=== PATIENT | male | born 1945 | race Caucasian/White ===

== ENCOUNTER 2017-06-12 08:54 | Day surgery (SDC) | payer MEDICARE ==
[~2017-06-12] VITALS: Ht 180.3 cm; Wt 117.0 kg
[~2017-06-12 08:54] MED LIST: AMLO5TAB2 PO; ASPI-621 PO; ATOR-2 PO; BUFFERED VITAMIN C PO; CARV-39 PO; GABA300C10 PO; HYDR-882 PO; IBUP-1222 PO; LOSA100T6 PO; MUPI22OI2 TP; NITR0.4T SL; OMEG-69 PO; WARF5TAB PO; WARF7.5T PO; [UNRECOGNIZED DRUG - OTHER] PO
[2017-06-12] MEDS ORDERED: D5%-0.45% NACL 1,000 ML IV SCH (09:59)
[2017-06-12 10:00] VITALS: BP 106/64
[2017-06-12 10:28] LABS: BASOPHILS # (AUTO) 0.02 x10^3/uL (0-0.1); BASOPHILS % (AUTO) 0 % (0-1); EOSINOPHILS # (AUTO) 0.04 x10^3/uL (0-0.4); EOSINOPHILS % (AUTO) 0 % (1-7); LYMPHOCYTES # (AUTO) 1.81 x10^3/uL (1-3.4); LYMPHOCYTES % (AUTO) 20 % (22-44); MD NO; MEAN CORPUSCULAR HEMOGLOBIN 31.4 pg (27.5-34.5); MEAN CORPUSCULAR HGB CONC 33.4 g/dL (33.2-36.2); MEAN PLATELET VOLUME 7.9 fL (7.4-10.4); MONOCYTES # (AUTO) 0.73 x10^3/uL (0.2-0.8); MONOCYTES % (AUTO) 8 % (2-9); NEUTROPHILS # (AUTO) 6.44 x10^3/uL (1.8-6.8); NEUTROPHILS % (AUTO) 71 % (42-75); PLATELET COUNT 232 x10^3/uL (130-400); RED BLOOD COUNT 4.28 x10^6/uL (4.38-5.82); RED CELL DISTRIBUTION WIDTH 12.8 % (9.4-14.8)
[2017-06-12 10:35] LABS: INTERNATIONAL NORMALIZED RATIO 1.15 (0.93-1.1); PROTHROMBIN TIME 11.8 Seconds (9.6-11.5)
[2017-06-12 10:37] LABS: CREATININE 1.58 mg/dL (0.7-1.3)
[2017-06-12] MEDS ORDERED: FENTANYL PF 100 MCG/2ML ONE (10:44)
[2017-06-12] MEDS ORDERED: LIDOCAINE 2%, 10ML ONE (10:48)
[2017-06-12] MEDS ORDERED: VISIPAQUE 270 MG/ML, 150ML BOTTLE ONE (11:00)
[2017-06-12] MEDS ORDERED: HEPARIN 1,000 UNITS/ML, 10ML ONE (11:48)
[2017-06-12] MEDS ORDERED: PROTAMINE SULFATE 10 MG/ML, 25ML ONE (11:57)
== END 2017-06-12 15:00 ==
LOC: OUT 08:54
PROVIDERS: ATTEND Surgery
DX: I70.79 Other atherosclerosis of other type of bypass graft(s) of the extremities (principal); I10 Essential (primary) hypertension; Z88.1 Allergy status to other antibiotic agents; Z88.5 Allergy status to narcotic agent; Z88.8 Allergy status to other drugs, medicaments and biological substances; Z79.82 Long term (current) use of aspirin; Z95.1 Presence of aortocoronary bypass graft; Z98.890 Other specified postprocedural states; Z96.659 Presence of unspecified artificial knee joint
CPT/HCPCS: 36415; 37224; 75630; 76937; 82565; 84520; 85025; 85610; 85730; C1725; C1751; C1760; C1769; C1894; J1644; J2720; J3010; J3490; Q9966

== ENCOUNTER 2017-09-02 23:52 | Inpatient (IN) | payer MEDICARE ==
[~2017-09-02] VITALS: Ht 180.3 cm; Wt 126.0 kg
[2017-09-03 01:24] VITALS: BP 97/60
[2017-09-03] MEDS ORDERED: MAGN2400 PO (01:56)
[2017-09-03] MEDS ORDERED: OXYC-307 PO (01:56)
[2017-09-03] MEDS ORDERED: SENN-87 PO (01:56)
[2017-09-03] MEDS ORDERED: HYDR25TA6 PO (01:56)
[2017-09-03] MEDS ORDERED: RANI150C PO (01:56)
[2017-09-03] MEDS ORDERED: ACET325C PO (01:56)
[2017-09-03] MEDS ORDERED: DOCU-131 PO (02:30)
[2017-09-03] MEDS: GABAPENTIN 300 MG CAPSULE PO SCH ×4 (03:28→22:05)
[2017-09-03] MEDS ORDERED: BISACODYL 10 MG SUPP PR PRN (03:30)
[2017-09-03] MEDS ORDERED: POLYETHYLENE GLYCOL 17 GM PACKET PO PRN (03:30)
[2017-09-03] MEDS ORDERED: ONDANSETRON ODT 4 MG PO PRN (03:30)
[2017-09-03] MEDS ORDERED: morphine SULFATE 10 MG/ML, 1ML IVPush PRN (03:30)
[2017-09-03] MEDS ORDERED: PROMETHAZINE 25 MG/ML, 1ML IM PRN (03:30)
[2017-09-03] MEDS ORDERED: LABETALOL 5MG/ML, 20ML IVPush PRN (03:30)
[2017-09-03] MEDS ORDERED: ONDANSETRON 2MG/ML, 2ML IVPush PRN (03:30)
[2017-09-03] MEDS ORDERED: MAGNESIUM HYDROXIDE 8%, 30ML UDC PO PRN (03:30)
[2017-09-03] MEDS ORDERED: DOCUSATE 100 MG CAPSULE PO PRN (03:30)
[2017-09-03 04:20] LABS: BASOPHILS # (AUTO) 0.06 x10^3/uL (0-0.1); BASOPHILS % (AUTO) 1 % (0-1); EOSINOPHILS # (AUTO) 0.43 x10^3/uL (0-0.4); EOSINOPHILS % (AUTO) 5 % (1-7); LYMPHOCYTES # (AUTO) 1.89 x10^3/uL (1-3.4); LYMPHOCYTES % (AUTO) 23 % (22-44); MD NO; MEAN CORPUSCULAR HEMOGLOBIN 30.2 pg (27.5-34.5); MEAN CORPUSCULAR HGB CONC 33.8 g/dL (33.2-36.2); MEAN CORPUSCULAR VOLUME 89.2 fL (81-97); MEAN PLATELET VOLUME 7.3 fL (7.4-10.4); MONOCYTES # (AUTO) 0.77 x10^3/uL (0.2-0.8); MONOCYTES % (AUTO) 9 % (2-9); NEUTROPHILS # (AUTO) 5.13 x10^3/uL (1.8-6.8); NEUTROPHILS % (AUTO) 62 % (42-75); PLATELET COUNT 259 x10^3/uL (130-400); RED CELL DISTRIBUTION WIDTH 14.8 % (9.4-14.8)
[2017-09-03 04:27] LABS: ALANINE AMINOTRANSFERASE 8 U/L (12-78); ALBUMIN 2.6 g/dL (3.4-5.0); ANION GAP 10 mmol/L (5-15); CALCIUM 8.7 mg/dL (8.5-10.1); CHLORIDE 106 mmol/L (98-107)
[2017-09-03 04:38] LABS: ALKALINE PHOSPHATASE 94 U/L (45-117); BILIRUBIN,TOTAL 1.1 mg/dL (0.2-1.0); CHOL/HDL RATIO 2.7; CHOLESTEROL, TOTAL 92 mg/dL (140-239); CREATININE 0.63 mg/dL (0.7-1.3); FREE T4 (FREE THYROXINE) 1.02 ng/dL (0.76-1.46); HDL CHOL % 37 % (26-37); HDL CHOLESTEROL (DIRECT) 34 mg/dL (40-60); LDL CHOLESTEROL,CALCULATED 39 mg/dL (54-169); LDL/HDL RATIO 1.1 (0.5-3.0); TOTAL PROTEIN 6.7 g/dL (6.4-8.2); TRIGLYCERIDES 96 mg/dL (50-200); VLDL CHOLESTEROL 19 mg/dL (0-25)
[2017-09-03 04:48] LABS: HEMOGLOBIN A1C 5.6 % (4.2-6.3)
[2017-09-03 05:02] LABS: HCT (SEDRATE) 35.7 % (39.2-51.8)
[2017-09-03 06:52] LABS: MICROSCOPIC NOT IND
[2017-09-03 06:58] LABS: CULTURE INDICATED? NO
[2017-09-03] MEDS: OMEGA-3/FISH OIL CAPSULE PO SCH ×2 (08:04→22:05)
[2017-09-03] MEDS: SENNA/DOCUSATE TABLET PO SCH (08:04)
[2017-09-03] MEDS: MULTIVITAMIN 1 TABLET PO SCH (08:05)
[2017-09-03] MEDS: HYDROCHLOROTHIAZIDE 25 MG TABLET PO SCH (08:05)
[2017-09-03] MEDS: OXYcodone/APAP 10/325MG TABLET PO PRN (08:05)
[2017-09-03] MEDS: FAMOTIDINE 20 MG TABLET PO SCH ×2 (08:05→22:05)
[2017-09-03 09:44] VITALS: BP 99/60
[2017-09-03 10:39] LABS: INTERNATIONAL NORMALIZED RATIO 1.55 (0.93-1.1)
[2017-09-03 15:59] VITALS: BP 148/83
[2017-09-03 21:30] VITALS: BP 130/75
[2017-09-03] MEDS: ATORVASTATIN 80 MG TABLET PO SCH (22:05)
[2017-09-04 01:44] VITALS: BP 146/79
[2017-09-04 05:36] LABS: BASOPHILS # (AUTO) 0.04 x10^3/uL (0-0.1); BASOPHILS % (AUTO) 0 % (0-1); EOSINOPHILS # (AUTO) 0.41 x10^3/uL (0-0.4); EOSINOPHILS % (AUTO) 4 % (1-7); LYMPHOCYTES # (AUTO) 1.93 x10^3/uL (1-3.4); LYMPHOCYTES % (AUTO) 21 % (22-44); MD NO; MEAN CORPUSCULAR HEMOGLOBIN 29.9 pg (27.5-34.5); MEAN CORPUSCULAR HGB CONC 33.3 g/dL (33.2-36.2); MEAN CORPUSCULAR VOLUME 89.8 fL (81-97); MEAN PLATELET VOLUME 7.5 fL (7.4-10.4); MONOCYTES # (AUTO) 0.87 x10^3/uL (0.2-0.8); MONOCYTES % (AUTO) 9 % (2-9); NEUTROPHILS # (AUTO) 6.15 x10^3/uL (1.8-6.8); NEUTROPHILS % (AUTO) 66 % (42-75); PLATELET COUNT 284 x10^3/uL (130-400); RED BLOOD COUNT 4.14 x10^6/uL (4.38-5.82); RED CELL DISTRIBUTION WIDTH 14.7 % (9.4-14.8)
[2017-09-04 05:36] LABS: ALBUMIN 2.7 g/dL (3.4-5.0); ANION GAP 6 mmol/L (5-15); CALCIUM 8.7 mg/dL (8.5-10.1); CHLORIDE 103 mmol/L (98-107)
[2017-09-04 05:41] LABS: ALANINE AMINOTRANSFERASE 9 U/L (12-78); ALKALINE PHOSPHATASE 95 U/L (45-117); BILIRUBIN,TOTAL 1.4 mg/dL (0.2-1.0); TOTAL PROTEIN 6.9 g/dL (6.4-8.2)
[2017-09-04 07:49] VITALS: BP 139/78
[2017-09-04] MEDS: OMEGA-3/FISH OIL CAPSULE PO SCH ×2 (09:10→20:25)
[2017-09-04] MEDS: GABAPENTIN 300 MG CAPSULE PO SCH ×3 (09:11→20:26)
[2017-09-04] MEDS: MULTIVITAMIN 1 TABLET PO SCH (09:11)
[2017-09-04] MEDS: HYDROCHLOROTHIAZIDE 25 MG TABLET PO SCH (09:11)
[2017-09-04] MEDS: FAMOTIDINE 20 MG TABLET PO SCH ×2 (09:11→20:26)
[2017-09-04] MEDS: OXYcodone/APAP 10/325MG TABLET PO PRN ×2 (09:11→17:37)
[2017-09-04] MEDS: SENNA/DOCUSATE TABLET PO SCH (09:11)
[2017-09-04] MEDS: SODIUM CHLORIDE FLUSH 10ML SYR IVF SCH ×2 (09:30→21:13)
[2017-09-04] MEDS ORDERED: VANCOMYCIN PER PHARMACY MC PRN ×2 (13:30→17:30)
[2017-09-04] MEDS ORDERED: PIPERACILLIN/TAZO/PMX 3.375GM 50 ML IV SCH (13:30)
[2017-09-04] MEDS ORDERED: PHARMACOKINETIC CONSULTATION MC ONE ×2 (14:00→17:30)
[2017-09-04] MEDS ORDERED: VANCOMYCIN 2,000 MG in SODIUM CHLORIDE 0.9% 500 ML IV SCH ×2 (14:00→18:00)
[2017-09-04] MEDS ORDERED: PHARMACOKINETIC MONITORING MC PRN ×2 (14:00→17:30)
[2017-09-04] MEDS ORDERED: GADOBUTROL 15 MMOL/15 ML PFS ONE (14:22)
[2017-09-04 15:44] VITALS: BP 90/50
[2017-09-04] MEDS ORDERED: PIPERACILLIN/TAZO/PMX 4.5GM 100 ML IV SCH (17:30)
[2017-09-04] MEDS: SODIUM CHLORIDE 0.9% 1,000 ML IV SCH (17:30)
[2017-09-04 19:38] VITALS: BP 105/65
[2017-09-04] MEDS: ATORVASTATIN 80 MG TABLET PO SCH (20:25)
[2017-09-04] MEDS: DOCUSATE 100 MG CAPSULE PO SCH (20:25)
[2017-09-05 01:53] VITALS: BP 120/71
[2017-09-05] MEDS: OXYcodone/APAP 10/325MG TABLET PO PRN ×3 (02:31→18:43)
[2017-09-05 04:51] LABS: BASOPHILS # (AUTO) 0.03 x10^3/uL (0-0.1); BASOPHILS % (AUTO) 0 % (0-1); EOSINOPHILS # (AUTO) 0.45 x10^3/uL (0-0.4); EOSINOPHILS % (AUTO) 4 % (1-7); LYMPHOCYTES # (AUTO) 1.97 x10^3/uL (1-3.4); LYMPHOCYTES % (AUTO) 15 % (22-44); MD NO; MEAN CORPUSCULAR HEMOGLOBIN 29.6 pg (27.5-34.5); MEAN CORPUSCULAR HGB CONC 32.7 g/dL (33.2-36.2); MEAN CORPUSCULAR VOLUME 90.5 fL (81-97); MEAN PLATELET VOLUME 7.2 fL (7.4-10.4); MONOCYTES # (AUTO) 1.14 x10^3/uL (0.2-0.8); MONOCYTES % (AUTO) 9 % (2-9); NEUTROPHILS # (AUTO) 9.23 x10^3/uL (1.8-6.8); NEUTROPHILS % (AUTO) 72 % (42-75); PLATELET COUNT 289 x10^3/uL (130-400); RED BLOOD COUNT 4.22 x10^6/uL (4.38-5.82); RED CELL DISTRIBUTION WIDTH 15.1 % (9.4-14.8)
[2017-09-05 05:04] LABS: CALCIUM 8.9 mg/dL (8.5-10.1); CHLORIDE 103 mmol/L (98-107)
[2017-09-05 05:08] LABS: ALANINE AMINOTRANSFERASE 9 U/L (12-78); ALBUMIN 2.6 g/dL (3.4-5.0); ALKALINE PHOSPHATASE 95 U/L (45-117); ANION GAP 5 mmol/L (5-15); BILIRUBIN,TOTAL 1.3 mg/dL (0.2-1.0); CREATININE 0.69 mg/dL (0.7-1.3); TOTAL PROTEIN 7.1 g/dL (6.4-8.2)
[2017-09-05 08:37] LABS: INTERNATIONAL NORMALIZED RATIO 1.27 (0.93-1.1); PROTHROMBIN TIME 13.1 Seconds (9.6-11.5)
[2017-09-05 08:44] VITALS: BP 122/73
[2017-09-05] MEDS: FAMOTIDINE 20 MG TABLET PO SCH ×2 (09:00→20:43)
[2017-09-05] MEDS: MULTIVITAMIN 1 TABLET PO SCH (09:00)
[2017-09-05] MEDS: SODIUM CHLORIDE FLUSH 10ML SYR IVF SCH ×2 (09:00→20:44)
[2017-09-05] MEDS: OMEGA-3/FISH OIL CAPSULE PO SCH ×2 (09:00→20:43)
[2017-09-05] MEDS: GABAPENTIN 300 MG CAPSULE PO SCH ×3 (09:00→20:43)
[2017-09-05] MEDS: SENNA/DOCUSATE TABLET PO SCH (09:00)
[2017-09-05] MEDS: DOCUSATE 100 MG CAPSULE PO SCH ×2 (09:00→20:43)
[2017-09-05] MEDS: HYDROCHLOROTHIAZIDE 25 MG TABLET PO SCH (09:00)
[2017-09-05] MEDS ORDERED: MIDAZOLAM 1 MG/ML, 5ML ONE (13:11)
[2017-09-05] MEDS ORDERED: FENTANYL PF 100 MCG/2ML ONE (13:11)
[2017-09-05] MEDS ORDERED: FLUMAZENIL 0.1 MG/1 ML, 5ML ONE (13:11)
[2017-09-05] MEDS ORDERED: NALOXONE 1 MG/ML, 2ML ONE (13:11)
[2017-09-05] MEDS ORDERED: LIDOCAINE-MPF 1%, 2ML ONE (13:25)
[2017-09-05] MEDS: SODIUM CHLORIDE 0.9% 1,000 ML IV SCH (13:30)
[2017-09-05 14:30] VITALS: BP 134/80
[2017-09-05 18:39] VITALS: BP 118/67
[2017-09-05] MEDS: ATORVASTATIN 80 MG TABLET PO SCH (20:43)
[2017-09-06] MEDS: OXYcodone/APAP 10/325MG TABLET PO PRN ×3 (00:50→18:23)
[2017-09-06 01:57] VITALS: BP 95/51
[2017-09-06 05:00] LABS: MEAN CORPUSCULAR HGB CONC 33.1 g/dL (33.2-36.2); MEAN CORPUSCULAR VOLUME 90.6 fL (81-97); MEAN PLATELET VOLUME 7.3 fL (7.4-10.4); PLATELET COUNT 285 x10^3/uL (130-400); RED BLOOD COUNT 4.06 x10^6/uL (4.38-5.82); RED CELL DISTRIBUTION WIDTH 14.8 % (9.4-14.8)
[2017-09-06 05:11] LABS: ALANINE AMINOTRANSFERASE 8 U/L (12-78); ALBUMIN 2.5 g/dL (3.4-5.0); ANION GAP 6 mmol/L (5-15); CALCIUM 8.5 mg/dL (8.5-10.1); CHLORIDE 102 mmol/L (98-107)
[2017-09-06 05:14] LABS: ALKALINE PHOSPHATASE 87 U/L (45-117); BILIRUBIN,TOTAL 1.8 mg/dL (0.2-1.0); CREATININE 0.88 mg/dL (0.7-1.3); TOTAL PROTEIN 6.9 g/dL (6.4-8.2)
[2017-09-06 05:45] LABS: BASOPHILS # (AUTO) 0.04 x10^3/uL (0-0.1); BASOPHILS % (AUTO) 0 % (0-1); EOSINOPHILS # (AUTO) 0.32 x10^3/uL (0-0.4); EOSINOPHILS % (AUTO) 2 % (1-7); LYMPHOCYTES # (AUTO) 2.15 x10^3/uL (1-3.4); LYMPHOCYTES % (AUTO) 17 % (22-44); MD SCAN; MONOCYTES % (AUTO) 12 % (2-9); NEUTROPHILS # (AUTO) 8.95 x10^3/uL (1.8-6.8); NEUTROPHILS % (AUTO) 69 % (42-75)
[2017-09-06 07:05] VITALS: BP 111/70
[2017-09-06] MEDS: DOCUSATE 100 MG CAPSULE PO SCH ×2 (09:00→21:19)
[2017-09-06] MEDS: SENNA/DOCUSATE TABLET PO SCH (09:00)
[2017-09-06] MEDS ORDERED: MAGNESIUM CITRATE 300ML ORAL SOL PO PRN (09:30)
[2017-09-06] MEDS: FAMOTIDINE 20 MG TABLET PO SCH ×2 (09:31→21:19)
[2017-09-06] MEDS: HYDROCHLOROTHIAZIDE 25 MG TABLET PO SCH (09:31)
[2017-09-06] MEDS: MULTIVITAMIN 1 TABLET PO SCH (09:32)
[2017-09-06] MEDS: GABAPENTIN 300 MG CAPSULE PO SCH ×3 (09:32→21:19)
[2017-09-06] MEDS: SODIUM CHLORIDE FLUSH 10ML SYR IVF SCH ×2 (09:32→21:20)
[2017-09-06] MEDS: OMEGA-3/FISH OIL CAPSULE PO SCH ×2 (11:34→21:19)
[2017-09-06 13:09] VITALS: BP 105/61
[2017-09-06] MEDS: MAGNESIUM HYDROXIDE 8%, 30ML UDC PO SCH (13:31)
[2017-09-06 19:50] VITALS: BP 122/71
[2017-09-06] MEDS: ATORVASTATIN 80 MG TABLET PO SCH (21:19)
[2017-09-07 01:21] VITALS: BP 107/69
[2017-09-07] MEDS: OXYcodone/APAP 10/325MG TABLET PO PRN ×3 (01:31→17:01)
[2017-09-07 05:56] LABS: BASOPHILS # (AUTO) 0.05 x10^3/uL (0-0.1); BASOPHILS % (AUTO) 0 % (0-1); EOSINOPHILS # (AUTO) 0.28 x10^3/uL (0-0.4); EOSINOPHILS % (AUTO) 2 % (1-7); LYMPHOCYTES # (AUTO) 2.29 x10^3/uL (1-3.4); LYMPHOCYTES % (AUTO) 20 % (22-44); MD NO; MEAN CORPUSCULAR HEMOGLOBIN 29.8 pg (27.5-34.5); MEAN CORPUSCULAR HGB CONC 33.2 g/dL (33.2-36.2); MEAN CORPUSCULAR VOLUME 89.8 fL (81-97); MEAN PLATELET VOLUME 7.4 fL (7.4-10.4); MONOCYTES # (AUTO) 1.35 x10^3/uL (0.2-0.8); MONOCYTES % (AUTO) 12 % (2-9); NEUTROPHILS # (AUTO) 7.64 x10^3/uL (1.8-6.8); NEUTROPHILS % (AUTO) 66 % (42-75); PLATELET COUNT 288 x10^3/uL (130-400); RED BLOOD COUNT 4.03 x10^6/uL (4.38-5.82); RED CELL DISTRIBUTION WIDTH 14.6 % (9.4-14.8)
[2017-09-07 06:07] LABS: CHLORIDE 101 mmol/L (98-107)
[2017-09-07 06:14] LABS: ALANINE AMINOTRANSFERASE 8 U/L (12-78); ALBUMIN 2.5 g/dL (3.4-5.0); ALKALINE PHOSPHATASE 83 U/L (45-117); ANION GAP 8 mmol/L (5-15); BILIRUBIN,TOTAL 2.2 mg/dL (0.2-1.0); CALCIUM 8.7 mg/dL (8.5-10.1); CREATININE 0.78 mg/dL (0.7-1.3); TOTAL PROTEIN 7.1 g/dL (6.4-8.2)
[2017-09-07 08:23] VITALS: BP 127/77
[2017-09-07] MEDS: GABAPENTIN 300 MG CAPSULE PO SCH ×3 (08:29→22:56)
[2017-09-07] MEDS: SENNA/DOCUSATE TABLET PO SCH (08:29)
[2017-09-07] MEDS: DOCUSATE 100 MG CAPSULE PO SCH ×2 (08:29→22:56)
[2017-09-07] MEDS: MULTIVITAMIN 1 TABLET PO SCH (08:29)
[2017-09-07] MEDS: FAMOTIDINE 20 MG TABLET PO SCH ×2 (08:29→22:55)
[2017-09-07] MEDS: HYDROCHLOROTHIAZIDE 25 MG TABLET PO SCH (08:29)
[2017-09-07] MEDS: MAGNESIUM HYDROXIDE 8%, 30ML UDC PO SCH (08:30)
[2017-09-07] MEDS: SODIUM CHLORIDE FLUSH 10ML SYR IVF SCH ×2 (08:30→22:56)
[2017-09-07] MEDS: OMEGA-3/FISH OIL CAPSULE PO SCH ×2 (08:30→22:56)
[2017-09-07] MEDS ORDERED: MAGNESIUM HYDROXIDE 8%, 30ML UDC PO SCH (09:00)
[2017-09-07 10:11] LABS: INTERNATIONAL NORMALIZED RATIO 1.15 (0.93-1.1); PROTHROMBIN TIME 11.9 Seconds (9.6-11.5)
[2017-09-07 15:30] VITALS: BP 127/77
[2017-09-07 19:17] VITALS: BP 95/59
[2017-09-07] MEDS: ATORVASTATIN 80 MG TABLET PO SCH (23:05)
[2017-09-08 00:54] VITALS: BP 118/72
[2017-09-08] MEDS: OXYcodone/APAP 10/325MG TABLET PO PRN ×3 (01:21→17:12)
[2017-09-08 05:04] LABS: BASOPHILS # (AUTO) 0.03 x10^3/uL (0-0.1); BASOPHILS % (AUTO) 0 % (0-1); EOSINOPHILS # (AUTO) 0.41 x10^3/uL (0-0.4); EOSINOPHILS % (AUTO) 4 % (1-7); LYMPHOCYTES # (AUTO) 1.82 x10^3/uL (1-3.4); LYMPHOCYTES % (AUTO) 16 % (22-44); MD NO; MEAN CORPUSCULAR HEMOGLOBIN 29.3 pg (27.5-34.5); MEAN PLATELET VOLUME 7.8 fL (7.4-10.4); MONOCYTES # (AUTO) 1.21 x10^3/uL (0.2-0.8); MONOCYTES % (AUTO) 11 % (2-9); NEUTROPHILS % (AUTO) 70 % (42-75); PLATELET COUNT 320 x10^3/uL (130-400); RED BLOOD COUNT 4.13 x10^6/uL (4.38-5.82); RED CELL DISTRIBUTION WIDTH 15.3 % (9.4-14.8)
[2017-09-08 05:13] LABS: CHLORIDE 98 mmol/L (98-107)
[2017-09-08 05:21] LABS: ALANINE AMINOTRANSFERASE 11 U/L (12-78); ALBUMIN 2.5 g/dL (3.4-5.0); ALKALINE PHOSPHATASE 85 U/L (45-117); ANION GAP 9 mmol/L (5-15); BILIRUBIN,TOTAL 1.8 mg/dL (0.2-1.0); CALCIUM 8.4 mg/dL (8.5-10.1); CREATININE 0.72 mg/dL (0.7-1.3); TOTAL PROTEIN 7.3 g/dL (6.4-8.2)
[2017-09-08 08:35] VITALS: BP 110/67
[2017-09-08] MEDS: MULTIVITAMIN 1 TABLET PO SCH (09:00)
[2017-09-08] MEDS: SENNA/DOCUSATE TABLET PO SCH (09:00)
[2017-09-08] MEDS: DOCUSATE 100 MG CAPSULE PO SCH ×2 (09:00→22:12)
[2017-09-08] MEDS: MAGNESIUM HYDROXIDE 8%, 30ML UDC PO SCH ×2 (09:00→17:16)
[2017-09-08] MEDS: FAMOTIDINE 20 MG TABLET PO SCH ×2 (09:00→22:13)
[2017-09-08] MEDS: OMEGA-3/FISH OIL CAPSULE PO SCH ×2 (09:00→22:13)
[2017-09-08] MEDS: HYDROCHLOROTHIAZIDE 25 MG TABLET PO SCH (09:00)
[2017-09-08] MEDS: GABAPENTIN 300 MG CAPSULE PO SCH ×3 (09:11→22:13)
[2017-09-08] MEDS: SODIUM CHLORIDE FLUSH 10ML SYR IVF SCH ×2 (09:11→22:12)
[2017-09-08] MEDS ORDERED: LIDOCAINE-MPF 2%, 2ML ONE (10:21)
[2017-09-08] MEDS ORDERED: NALOXONE 1 MG/ML, 2ML ONE (10:47)
[2017-09-08] MEDS ORDERED: FENTANYL PF 100 MCG/2ML ONE (10:47)
[2017-09-08] MEDS ORDERED: MIDAZOLAM 1 MG/ML, 5ML ONE (10:47)
[2017-09-08] MEDS ORDERED: FLUMAZENIL 0.1 MG/1 ML, 5ML ONE (10:47)
[2017-09-08 12:49] LABS: INTERNATIONAL NORMALIZED RATIO 1.12 (0.93-1.1); PROTHROMBIN TIME 11.6 Seconds (9.6-11.5)
[2017-09-08 13:28] VITALS: BP 107/46
[2017-09-08 14:13] LABS: BASOPHILS # (AUTO) 0.03 x10^3/uL (0-0.1); BASOPHILS % (AUTO) 0 % (0-1); EOSINOPHILS # (AUTO) 0.32 x10^3/uL (0-0.4); EOSINOPHILS % (AUTO) 3 % (1-7); LYMPHOCYTES # (AUTO) 1.91 x10^3/uL (1-3.4); LYMPHOCYTES % (AUTO) 20 % (22-44); MD NO; MEAN CORPUSCULAR HEMOGLOBIN 28.6 pg (27.5-34.5); MEAN CORPUSCULAR HGB CONC 32.2 g/dL (33.2-36.2); MEAN PLATELET VOLUME 7.6 fL (7.4-10.4); MONOCYTES % (AUTO) 7 % (2-9); NEUTROPHILS # (AUTO) 6.64 x10^3/uL (1.8-6.8); NEUTROPHILS % (AUTO) 69 % (42-75); PLATELET COUNT 312 x10^3/uL (130-400); RED BLOOD COUNT 4.39 x10^6/uL (4.38-5.82); RED CELL DISTRIBUTION WIDTH 14.5 % (9.4-14.8)
[2017-09-08 15:49] LABS: HCT (SEDRATE) 63.7 % (39.2-51.8)
[2017-09-08] MEDS: METHOCARBAMOL 500 MG TABLET PO PRN (17:16)
[2017-09-08 20:19] VITALS: BP 114/63
[2017-09-08] MEDS: ATORVASTATIN 80 MG TABLET PO SCH (22:13)
[2017-09-09] MEDS: OXYcodone/APAP 10/325MG TABLET PO PRN ×4 (00:25→23:20)
[2017-09-09 01:21] VITALS: BP 115/60
[2017-09-09 05:27] LABS: ALANINE AMINOTRANSFERASE 10 U/L (12-78); ALBUMIN 2.5 g/dL (3.4-5.0); ANION GAP 5 mmol/L (5-15); CALCIUM 8.7 mg/dL (8.5-10.1); CHLORIDE 101 mmol/L (98-107)
[2017-09-09 05:28] LABS: BASOPHILS # (AUTO) 0.04 x10^3/uL (0-0.1); BASOPHILS % (AUTO) 1 % (0-1); EOSINOPHILS # (AUTO) 0.41 x10^3/uL (0-0.4); EOSINOPHILS % (AUTO) 5 % (1-7); LYMPHOCYTES # (AUTO) 2.27 x10^3/uL (1-3.4); LYMPHOCYTES % (AUTO) 25 % (22-44); MD NO; MEAN CORPUSCULAR HEMOGLOBIN 29.5 pg (27.5-34.5); MEAN CORPUSCULAR HGB CONC 32.9 g/dL (33.2-36.2); MEAN CORPUSCULAR VOLUME 89.6 fL (81-97); MONOCYTES # (AUTO) 0.96 x10^3/uL (0.2-0.8); MONOCYTES % (AUTO) 11 % (2-9); NEUTROPHILS # (AUTO) 5.37 x10^3/uL (1.8-6.8); NEUTROPHILS % (AUTO) 59 % (42-75); PLATELET COUNT 310 x10^3/uL (130-400); RED BLOOD COUNT 3.92 x10^6/uL (4.38-5.82); RED CELL DISTRIBUTION WIDTH 14.7 % (9.4-14.8)
[2017-09-09 05:29] LABS: ALKALINE PHOSPHATASE 83 U/L (45-117); BILIRUBIN,TOTAL 1.3 mg/dL (0.2-1.0); TOTAL PROTEIN 6.7 g/dL (6.4-8.2)
[2017-09-09 07:02] VITALS: BP 125/65
[2017-09-09] MEDS ORDERED: LOSARTAN 25MG TABLET PO SCH (09:00)
[2017-09-09] MEDS: FAMOTIDINE 20 MG TABLET PO SCH ×2 (09:09→20:36)
[2017-09-09] MEDS: DOCUSATE 100 MG CAPSULE PO SCH ×2 (09:10→20:36)
[2017-09-09] MEDS: SENNA/DOCUSATE TABLET PO SCH (09:10)
[2017-09-09] MEDS: CARVEDILOL 25 MG TABLET PO SCH (09:10)
[2017-09-09] MEDS: MULTIVITAMIN 1 TABLET PO SCH (09:10)
[2017-09-09] MEDS: GABAPENTIN 300 MG CAPSULE PO SCH ×3 (09:10→20:36)
[2017-09-09] MEDS: SODIUM CHLORIDE FLUSH 10ML SYR IVF SCH ×2 (09:11→20:36)
[2017-09-09] MEDS: HYDROCHLOROTHIAZIDE 25 MG TABLET PO SCH (09:11)
[2017-09-09] MEDS: OMEGA-3/FISH OIL CAPSULE PO SCH ×2 (09:11→20:36)
[2017-09-09] MEDS: ASPIRIN 81 MG TABLET EC PO SCH (09:11)
[2017-09-09] MEDS: METHOCARBAMOL 500 MG TABLET PO PRN ×2 (09:23→23:20)
[2017-09-09] MEDS ORDERED: MAGNESIUM CITRATE 300ML ORAL SOL PO SCH (12:30)
[2017-09-09 12:44] VITALS: BP 96/57
[2017-09-09] MEDS ORDERED: ONDANSETRON 2MG/ML, 2ML IVPush PRN (15:30)
[2017-09-09] MEDS ORDERED: MEROPENEM 1 GM in SODIUM CHLORIDE 0.9% 100 ML IV SCH (16:00)
[2017-09-09 19:15] VITALS: BP 109/59
[2017-09-09] MEDS: ATORVASTATIN 80 MG TABLET PO SCH (20:36)
[2017-09-09] MEDS ORDERED: LACTULOSE 10 GM/15 ML UDC PO SCH (21:00)
[2017-09-09] MEDS ORDERED: RIFAXIMIN 550 MG TABLET PO SCH (21:00)
[2017-09-10 03:26] VITALS: BP 116/68
[2017-09-10 05:19] LABS: BASOPHILS # (AUTO) 0.04 x10^3/uL (0-0.1); BASOPHILS % (AUTO) 0 % (0-1); EOSINOPHILS # (AUTO) 0.43 x10^3/uL (0-0.4); EOSINOPHILS % (AUTO) 5 % (1-7); LYMPHOCYTES # (AUTO) 2.22 x10^3/uL (1-3.4); LYMPHOCYTES % (AUTO) 25 % (22-44); MD NO; MEAN CORPUSCULAR HEMOGLOBIN 29.6 pg (27.5-34.5); MEAN CORPUSCULAR HGB CONC 33.3 g/dL (33.2-36.2); MEAN CORPUSCULAR VOLUME 89.1 fL (81-97); MEAN PLATELET VOLUME 7.5 fL (7.4-10.4); MONOCYTES # (AUTO) 0.83 x10^3/uL (0.2-0.8); MONOCYTES % (AUTO) 9 % (2-9); NEUTROPHILS # (AUTO) 5.54 x10^3/uL (1.8-6.8); NEUTROPHILS % (AUTO) 61 % (42-75); PLATELET COUNT 302 x10^3/uL (130-400); RED BLOOD COUNT 3.99 x10^6/uL (4.38-5.82); RED CELL DISTRIBUTION WIDTH 14.5 % (9.4-14.8)
[2017-09-10 05:23] LABS: CHLORIDE 100 mmol/L (98-107)
[2017-09-10 05:42] LABS: INTERNATIONAL NORMALIZED RATIO 1.08 (0.93-1.1); PROTHROMBIN TIME 11.2 Seconds (9.6-11.5)
[2017-09-10 06:01] LABS: ALANINE AMINOTRANSFERASE 9 U/L (12-78); ALBUMIN 2.5 g/dL (3.4-5.0); ALKALINE PHOSPHATASE 89 U/L (45-117); ANION GAP 4 mmol/L (5-15); CALCIUM 8.7 mg/dL (8.5-10.1); CREATININE 0.63 mg/dL (0.7-1.3); TOTAL PROTEIN 6.9 g/dL (6.4-8.2)
[2017-09-10 07:09] VITALS: BP 112/68
[2017-09-10] MEDS: MULTIVITAMIN 1 TABLET PO SCH (08:45)
[2017-09-10] MEDS: SODIUM CHLORIDE FLUSH 10ML SYR IVF SCH ×2 (08:45→21:03)
[2017-09-10] MEDS: OMEGA-3/FISH OIL CAPSULE PO SCH ×2 (08:46→21:02)
[2017-09-10] MEDS: DOCUSATE 100 MG CAPSULE PO SCH ×2 (08:46→21:00)
[2017-09-10] MEDS: SENNA/DOCUSATE TABLET PO SCH (08:46)
[2017-09-10] MEDS: OXYcodone/APAP 10/325MG TABLET PO PRN ×2 (08:47→16:36)
[2017-09-10] MEDS: CARVEDILOL 25 MG TABLET PO SCH (08:47)
[2017-09-10] MEDS: ASPIRIN 81 MG TABLET EC PO SCH (08:47)
[2017-09-10] MEDS: FAMOTIDINE 20 MG TABLET PO SCH ×2 (08:47→21:02)
[2017-09-10] MEDS: GABAPENTIN 300 MG CAPSULE PO SCH ×3 (08:47→21:02)
[2017-09-10] MEDS: HYDROCHLOROTHIAZIDE 25 MG TABLET PO SCH (08:48)
[2017-09-10] MEDS ORDERED: FUROSEMIDE 20 MG/2 ML IV SCH (09:00)
[2017-09-10] MEDS ORDERED: SPIRONOLACTONE 100 MG TABLET PO SCH (09:00)
[2017-09-10] MEDS: MAGNESIUM HYDROXIDE 8%, 30ML UDC PO SCH (09:00)
[2017-09-10] MEDS: METHOCARBAMOL 500 MG TABLET PO PRN ×2 (09:01→16:36)
[2017-09-10 12:37] VITALS: BP 94/55
[2017-09-10 19:01] VITALS: BP 98/60
[2017-09-10] MEDS: LOSARTAN 25MG TABLET PO SCH (21:03)
[2017-09-10] MEDS: ATORVASTATIN 80 MG TABLET PO SCH (21:06)
[2017-09-11] MEDS: OXYcodone/APAP 10/325MG TABLET PO PRN ×3 (00:04→16:26)
[2017-09-11] MEDS: METHOCARBAMOL 500 MG TABLET PO PRN ×3 (00:04→16:26)
[2017-09-11 01:46] VITALS: BP 105/64
[2017-09-11 05:04] LABS: BASOPHILS # (AUTO) 0.05 x10^3/uL (0-0.1); BASOPHILS % (AUTO) 1 % (0-1); EOSINOPHILS # (AUTO) 0.52 x10^3/uL (0-0.4); EOSINOPHILS % (AUTO) 6 % (1-7); LYMPHOCYTES # (AUTO) 2.46 x10^3/uL (1-3.4); LYMPHOCYTES % (AUTO) 27 % (22-44); MD NO; MEAN CORPUSCULAR HEMOGLOBIN 29.6 pg (27.5-34.5); MEAN CORPUSCULAR HGB CONC 33.2 g/dL (33.2-36.2); MEAN CORPUSCULAR VOLUME 89.2 fL (81-97); MEAN PLATELET VOLUME 7.8 fL (7.4-10.4); MONOCYTES # (AUTO) 0.94 x10^3/uL (0.2-0.8); MONOCYTES % (AUTO) 10 % (2-9); NEUTROPHILS # (AUTO) 5.19 x10^3/uL (1.8-6.8); NEUTROPHILS % (AUTO) 57 % (42-75); PLATELET COUNT 303 x10^3/uL (130-400); RED BLOOD COUNT 3.88 x10^6/uL (4.38-5.82); RED CELL DISTRIBUTION WIDTH 14.6 % (9.4-14.8)
[2017-09-11 05:05] LABS: HCT (SEDRATE) 35.3 % (39.2-51.8)
[2017-09-11 05:06] LABS: ALANINE AMINOTRANSFERASE 10 U/L (12-78); ALBUMIN 2.4 g/dL (3.4-5.0); ANION GAP 5 mmol/L (5-15); CALCIUM 8.1 mg/dL (8.5-10.1); CHLORIDE 100 mmol/L (98-107)
[2017-09-11 05:13] LABS: ALKALINE PHOSPHATASE 90 U/L (45-117); BILIRUBIN,TOTAL 0.8 mg/dL (0.2-1.0); CREATININE 0.64 mg/dL (0.7-1.3); TOTAL PROTEIN 6.7 g/dL (6.4-8.2)
[2017-09-11 06:41] VITALS: BP 110/74
[2017-09-11 07:22] VITALS: BP 116/70
[2017-09-11] MEDS: HYDROCHLOROTHIAZIDE 25 MG TABLET PO SCH (07:52)
[2017-09-11] MEDS: MULTIVITAMIN 1 TABLET PO SCH (07:52)
[2017-09-11] MEDS: OMEGA-3/FISH OIL CAPSULE PO SCH ×2 (07:52→19:53)
[2017-09-11] MEDS: ASPIRIN 81 MG TABLET EC PO SCH (07:52)
[2017-09-11] MEDS: FAMOTIDINE 20 MG TABLET PO SCH ×2 (07:52→19:53)
[2017-09-11] MEDS: GABAPENTIN 300 MG CAPSULE PO SCH ×3 (07:53→19:52)
[2017-09-11] MEDS: DOCUSATE 100 MG CAPSULE PO SCH ×2 (07:53→19:53)
[2017-09-11] MEDS: CARVEDILOL 25 MG TABLET PO SCH (07:53)
[2017-09-11] MEDS: SENNA/DOCUSATE TABLET PO SCH (07:54)
[2017-09-11] MEDS: MAGNESIUM HYDROXIDE 8%, 30ML UDC PO SCH (07:57)
[2017-09-11] MEDS: SODIUM CHLORIDE FLUSH 10ML SYR IVF SCH ×2 (07:57→19:53)
[2017-09-11 12:40] VITALS: BP 93/54
[2017-09-11 19:48] VITALS: BP 108/63
[2017-09-11] MEDS: ATORVASTATIN 80 MG TABLET PO SCH (19:52)
[2017-09-11] MEDS: LOSARTAN 25MG TABLET PO SCH (19:53)
[2017-09-12] MEDS: OXYcodone/APAP 10/325MG TABLET PO PRN ×3 (00:21→20:20)
[2017-09-12 03:41] VITALS: BP 114/71
[2017-09-12] MEDS: METHOCARBAMOL 500 MG TABLET PO PRN ×3 (03:44→21:39)
[2017-09-12 07:33] VITALS: BP 144/78
[2017-09-12] MEDS: SODIUM CHLORIDE FLUSH 10ML SYR IVF SCH ×2 (09:00→20:15)
[2017-09-12] MEDS: MAGNESIUM HYDROXIDE 8%, 30ML UDC PO SCH (09:00)
[2017-09-12] MEDS: ASPIRIN 81 MG TABLET EC PO SCH (09:41)
[2017-09-12] MEDS: OMEGA-3/FISH OIL CAPSULE PO SCH ×2 (09:41→20:17)
[2017-09-12] MEDS: FAMOTIDINE 20 MG TABLET PO SCH ×2 (09:41→20:17)
[2017-09-12] MEDS: MULTIVITAMIN 1 TABLET PO SCH (09:41)
[2017-09-12] MEDS: SENNA/DOCUSATE TABLET PO SCH (09:41)
[2017-09-12] MEDS: DOCUSATE 100 MG CAPSULE PO SCH (09:41)
[2017-09-12] MEDS: GABAPENTIN 300 MG CAPSULE PO SCH ×3 (09:42→20:16)
[2017-09-12] MEDS: HYDROCHLOROTHIAZIDE 25 MG TABLET PO SCH (10:26)
[2017-09-12] MEDS: CARVEDILOL 25 MG TABLET PO SCH (10:27)
[2017-09-12] MEDS ORDERED: HEPARIN 5,000 UNITS/ML, 1ML SQ SCH (11:00)
[2017-09-12 12:36] VITALS: BP 111/68
[2017-09-12 19:53] VITALS: BP 127/74
[2017-09-12] MEDS: ATORVASTATIN 80 MG TABLET PO SCH (20:16)
[2017-09-12] MEDS: LOSARTAN 25MG TABLET PO SCH (20:19)
[2017-09-13 00:57] VITALS: BP 135/80
[2017-09-13] MEDS: OXYcodone/APAP 10/325MG TABLET PO PRN ×3 (02:50→16:59)
[2017-09-13 05:48] LABS: BASOPHILS # (AUTO) 0.04 x10^3/uL (0-0.1); BASOPHILS % (AUTO) 1 % (0-1); EOSINOPHILS # (AUTO) 0.46 x10^3/uL (0-0.4); EOSINOPHILS % (AUTO) 5 % (1-7); LYMPHOCYTES # (AUTO) 2.13 x10^3/uL (1-3.4); LYMPHOCYTES % (AUTO) 26 % (22-44); MD NO; MEAN CORPUSCULAR HEMOGLOBIN 29.2 pg (27.5-34.5); MEAN CORPUSCULAR HGB CONC 32.8 g/dL (33.2-36.2); MEAN CORPUSCULAR VOLUME 88.9 fL (81-97); MEAN PLATELET VOLUME 7.4 fL (7.4-10.4); MONOCYTES # (AUTO) 0.72 x10^3/uL (0.2-0.8); MONOCYTES % (AUTO) 9 % (2-9); NEUTROPHILS # (AUTO) 5.02 x10^3/uL (1.8-6.8); NEUTROPHILS % (AUTO) 60 % (42-75); PLATELET COUNT 331 x10^3/uL (130-400); RED BLOOD COUNT 4.17 x10^6/uL (4.38-5.82); RED CELL DISTRIBUTION WIDTH 14.9 % (9.4-14.8)
[2017-09-13 06:21] LABS: CHLORIDE 100 mmol/L (98-107)
[2017-09-13 06:29] LABS: ALANINE AMINOTRANSFERASE 11 U/L (12-78); ALBUMIN 2.8 g/dL (3.4-5.0); ALKALINE PHOSPHATASE 99 U/L (45-117); ANION GAP 8 mmol/L (5-15); CALCIUM 9.2 mg/dL (8.5-10.1); CREATININE 0.62 mg/dL (0.7-1.3); TOTAL PROTEIN 7.3 g/dL (6.4-8.2)
[2017-09-13 07:06] VITALS: BP 130/73
[2017-09-13] MEDS: ASPIRIN 81 MG TABLET EC PO SCH (08:27)
[2017-09-13] MEDS: METHOCARBAMOL 500 MG TABLET PO PRN ×2 (08:55→16:59)
[2017-09-13] MEDS: GABAPENTIN 300 MG CAPSULE PO SCH ×3 (08:55→22:03)
[2017-09-13] MEDS: HYDROCHLOROTHIAZIDE 25 MG TABLET PO SCH (08:55)
[2017-09-13] MEDS: CARVEDILOL 25 MG TABLET PO SCH (08:56)
[2017-09-13] MEDS: MULTIVITAMIN 1 TABLET PO SCH (08:56)
[2017-09-13] MEDS: MAGNESIUM HYDROXIDE 8%, 30ML UDC PO SCH (09:00)
[2017-09-13] MEDS: SENNA/DOCUSATE TABLET PO SCH (09:00)
[2017-09-13] MEDS: FAMOTIDINE 20 MG TABLET PO SCH ×2 (09:24→22:03)
[2017-09-13] MEDS: SODIUM CHLORIDE FLUSH 10ML SYR IVF SCH ×2 (09:25→22:02)
[2017-09-13 12:13] VITALS: BP 90/60
[2017-09-13 20:03] VITALS: BP 111/69
[2017-09-13] MEDS: ATORVASTATIN 80 MG TABLET PO SCH (22:02)
[2017-09-13] MEDS: LOSARTAN 25MG TABLET PO SCH (22:03)
[2017-09-14] MEDS: METHOCARBAMOL 500 MG TABLET PO PRN ×4 (00:52→23:51)
[2017-09-14] MEDS: OXYcodone/APAP 10/325MG TABLET PO PRN ×4 (00:52→23:51)
[2017-09-14 01:41] VITALS: BP 110/69
[2017-09-14 09:08] VITALS: BP 100/61
[2017-09-14] MEDS: FAMOTIDINE 20 MG TABLET PO SCH ×2 (09:28→20:07)
[2017-09-14] MEDS: MULTIVITAMIN 1 TABLET PO SCH (09:28)
[2017-09-14] MEDS: GABAPENTIN 300 MG CAPSULE PO SCH ×3 (09:28→20:06)
[2017-09-14] MEDS: SENNA/DOCUSATE TABLET PO SCH (09:28)
[2017-09-14] MEDS: HYDROCHLOROTHIAZIDE 25 MG TABLET PO SCH (09:28)
[2017-09-14] MEDS: MAGNESIUM HYDROXIDE 8%, 30ML UDC PO SCH (09:30)
[2017-09-14] MEDS: CARVEDILOL 25 MG TABLET PO SCH (09:31)
[2017-09-14] MEDS: SODIUM CHLORIDE FLUSH 10ML SYR IVF SCH ×2 (09:31→20:07)
[2017-09-14 13:04] VITALS: BP 98/60
[2017-09-14 20:02] VITALS: BP 108/66
[2017-09-14] MEDS: LOSARTAN 25MG TABLET PO SCH (20:07)
[2017-09-14] MEDS: ATORVASTATIN 80 MG TABLET PO SCH (20:07)
[2017-09-15 02:00] VITALS: BP 110/64
[2017-09-15 06:58] VITALS: BP 108/70
[2017-09-15] MEDS: MAGNESIUM HYDROXIDE 8%, 30ML UDC PO SCH (08:59)
[2017-09-15] MEDS: SENNA/DOCUSATE TABLET PO SCH (08:59)
[2017-09-15] MEDS: CARVEDILOL 25 MG TABLET PO SCH (08:59)
[2017-09-15] MEDS: FAMOTIDINE 20 MG TABLET PO SCH ×2 (08:59→20:51)
[2017-09-15] MEDS: OXYcodone/APAP 10/325MG TABLET PO PRN ×3 (08:59→23:29)
[2017-09-15] MEDS: HYDROCHLOROTHIAZIDE 25 MG TABLET PO SCH (09:00)
[2017-09-15] MEDS: MULTIVITAMIN 1 TABLET PO SCH (09:00)
[2017-09-15] MEDS: SODIUM CHLORIDE FLUSH 10ML SYR IVF SCH ×2 (09:00→20:52)
[2017-09-15] MEDS: METHOCARBAMOL 500 MG TABLET PO PRN ×3 (09:00→23:29)
[2017-09-15] MEDS: GABAPENTIN 300 MG CAPSULE PO SCH ×3 (09:00→20:52)
[2017-09-15 12:45] VITALS: BP 98/60
[2017-09-15 13:09] VITALS: BP 90/55
[2017-09-15 20:03] VITALS: BP 117/74
[2017-09-15] MEDS: ATORVASTATIN 80 MG TABLET PO SCH (20:52)
[2017-09-15] MEDS: LOSARTAN 25MG TABLET PO SCH (20:52)
[2017-09-16 01:15] VITALS: BP 95/60
[2017-09-16 06:58] VITALS: BP 130/72
[2017-09-16] MEDS: FAMOTIDINE 20 MG TABLET PO SCH ×2 (08:06→21:12)
[2017-09-16] MEDS: SODIUM CHLORIDE FLUSH 10ML SYR IVF SCH ×2 (08:06→21:12)
[2017-09-16] MEDS: GABAPENTIN 300 MG CAPSULE PO SCH ×3 (08:06→21:12)
[2017-09-16] MEDS: MULTIVITAMIN 1 TABLET PO SCH (08:07)
[2017-09-16] MEDS: METHOCARBAMOL 500 MG TABLET PO PRN ×2 (08:07→16:41)
[2017-09-16] MEDS: HYDROCHLOROTHIAZIDE 25 MG TABLET PO SCH (08:07)
[2017-09-16] MEDS: SENNA/DOCUSATE TABLET PO SCH (08:07)
[2017-09-16] MEDS: CARVEDILOL 25 MG TABLET PO SCH (08:07)
[2017-09-16] MEDS: OXYcodone/APAP 10/325MG TABLET PO PRN ×2 (08:07→16:41)
[2017-09-16] MEDS: MAGNESIUM HYDROXIDE 8%, 30ML UDC PO SCH ×2 (08:08→10:38)
[2017-09-16] MEDS ORDERED: NITR0.4T SL (10:52)
[2017-09-16 14:43] VITALS: BP 92/63
[2017-09-16 20:22] VITALS: BP 118/70
[2017-09-16] MEDS: LOSARTAN 25MG TABLET PO SCH (21:00)
[2017-09-16] MEDS: ATORVASTATIN 80 MG TABLET PO SCH (21:12)
[2017-09-17] MEDS: OXYcodone/APAP 10/325MG TABLET PO PRN ×4 (00:36→23:52)
[2017-09-17] MEDS: METHOCARBAMOL 500 MG TABLET PO PRN ×4 (00:36→23:52)
[2017-09-17 00:39] VITALS: BP 120/77
[2017-09-17 06:40] VITALS: BP 135/81
[2017-09-17] MEDS: FAMOTIDINE 20 MG TABLET PO SCH ×2 (08:44→21:35)
[2017-09-17] MEDS: SODIUM CHLORIDE FLUSH 10ML SYR IVF SCH ×2 (08:44→21:34)
[2017-09-17] MEDS: SENNA/DOCUSATE TABLET PO SCH (08:45)
[2017-09-17] MEDS: MULTIVITAMIN 1 TABLET PO SCH (08:45)
[2017-09-17] MEDS: GABAPENTIN 300 MG CAPSULE PO SCH ×3 (08:45→21:35)
[2017-09-17] MEDS: CARVEDILOL 25 MG TABLET PO SCH (08:45)
[2017-09-17 14:40] VITALS: BP 117/70
[2017-09-17 20:07] VITALS: BP 117/72
[2017-09-17] MEDS: LOSARTAN 25MG TABLET PO SCH (21:00)
[2017-09-17] MEDS: ATORVASTATIN 80 MG TABLET PO SCH (21:34)
[2017-09-18 00:11] VITALS: BP 143/80
[2017-09-18 05:33] LABS: BASOPHILS # (AUTO) 0.07 x10^3/uL (0-0.1); BASOPHILS % (AUTO) 1 % (0-1); EOSINOPHILS # (AUTO) 0.49 x10^3/uL (0-0.4); EOSINOPHILS % (AUTO) 5 % (1-7); LYMPHOCYTES # (AUTO) 2.27 x10^3/uL (1-3.4); LYMPHOCYTES % (AUTO) 22 % (22-44); MD NO; MEAN CORPUSCULAR HEMOGLOBIN 29.6 pg (27.5-34.5); MEAN CORPUSCULAR HGB CONC 33.2 g/dL (33.2-36.2); MEAN CORPUSCULAR VOLUME 89.3 fL (81-97); MEAN PLATELET VOLUME 7.9 fL (7.4-10.4); MONOCYTES # (AUTO) 1.29 x10^3/uL (0.2-0.8); MONOCYTES % (AUTO) 12 % (2-9); NEUTROPHILS # (AUTO) 6.37 x10^3/uL (1.8-6.8); NEUTROPHILS % (AUTO) 61 % (42-75); PLATELET COUNT 282 x10^3/uL (130-400); RED BLOOD COUNT 4.11 x10^6/uL (4.38-5.82); RED CELL DISTRIBUTION WIDTH 15.1 % (9.4-14.8)
[2017-09-18 05:42] LABS: CHLORIDE 100 mmol/L (98-107)
[2017-09-18 05:59] LABS: ALANINE AMINOTRANSFERASE 12 U/L (12-78); ALBUMIN 2.7 g/dL (3.4-5.0); ALKALINE PHOSPHATASE 98 U/L (45-117); ANION GAP 6 mmol/L (5-15); BILIRUBIN,TOTAL 0.9 mg/dL (0.2-1.0); CALCIUM 8.6 mg/dL (8.5-10.1); CREATININE 0.65 mg/dL (0.7-1.3); TOTAL PROTEIN 7.2 g/dL (6.4-8.2)
[2017-09-18] MEDS: CARVEDILOL 25 MG TABLET PO SCH ×2 (06:19→11:25)
[2017-09-18] MEDS ORDERED: methylPREDNISolone SOD SUCC 125 MG/2 ML ONE (06:25)
[2017-09-18] MEDS ORDERED: BACITRACIN 50,000 UNIT ONE (06:25)
[2017-09-18] MEDS ORDERED: BUPIVACAINE/PF 0.5% ONE (06:26)
[2017-09-18] MEDS ORDERED: THROMBIN 5,000 UNIT VIAL TP ONE (06:26)
[2017-09-18] MEDS ORDERED: EPINEPHRINE 1 MG/ML, 1ML ONE (06:27)
[2017-09-18] MEDS ORDERED: LIDOCAINE-MPF 2% ,5ML ONE ×2 (06:51→07:57)
[2017-09-18] MEDS ORDERED: ROCURONIUM 10MG/ML,5ML ONE (06:53)
[2017-09-18] MEDS ORDERED: PHENYLEPHRINE 10 MG/ML ONE (06:54)
[2017-09-18] MEDS ORDERED: MIDAZOLAM 1 MG/ML, 2ML ONE (07:08)
[2017-09-18] MEDS ORDERED: FENTANYL PF 100 MCG/2ML ONE ×2 (07:08→09:43)
[2017-09-18] MEDS ORDERED: LIDOCAINE GEL 2%, 5ML ONE (07:11)
[2017-09-18] MEDS ORDERED: METOCLOPRAMIDE 5 MG/ML, 2ML ONE (07:50)
[2017-09-18] MEDS ORDERED: ONDANSETRON 2MG/ML, 2ML ONE (07:51)
[2017-09-18] MEDS ORDERED: DEXAMETHASONE 4 MG/ML, 1ML ONE (07:51)
[2017-09-18] MEDS ORDERED: EPHEDRINE 50 MG/ML, 1ML ONE ×2 (07:53)
[2017-09-18] MEDS ORDERED: GLYCOPYRROLATE 0.4 MG/2 ML, 2ML ONE ×2 (08:52)
[2017-09-18] MEDS ORDERED: NEOSTIGMINE 1 MG/ML, 10ML ONE (08:52)
[2017-09-18] MEDS ORDERED: VANCOMYCIN 1,000 MG ONE (08:53)
[2017-09-18] MEDS ORDERED: CEFTRIAXONE 1,000 MG ONE (08:58)
[2017-09-18] MEDS: MAGNESIUM HYDROXIDE 8%, 30ML UDC PO SCH (09:00)
[2017-09-18] MEDS ORDERED: HYDROmorphone 2 MG/ML, 1ML ONE (09:43)
[2017-09-18] MEDS ORDERED: OXYcodone 5 MG/5 ML ORAL.SOL UDC ONE (09:44)
[2017-09-18] MEDS ORDERED: OXYcodone 5 MG/5 ML ORAL.SOL UDC PO PRN (10:00)
[2017-09-18] MEDS ORDERED: ONDANSETRON 2MG/ML, 2ML IVPush PRN (10:00)
[2017-09-18] MEDS ORDERED: LABETALOL 5MG/ML, 20ML IV PRN ×2 (10:00→12:30)
[2017-09-18] MEDS ORDERED: MIDAZOLAM 1 MG/ML, 2ML IV PRN (10:00)
[2017-09-18] MEDS ORDERED: MEPERIDINE/PF 25MG/0.5ML IVPush PRN (10:00)
[2017-09-18] MEDS ORDERED: FENTANYL PF 100 MCG/2ML IV PRN (10:00)
[2017-09-18] MEDS: HYDROmorphone 1 MG/ML, 1ML IV PRN ×2 (10:10→10:22)
[2017-09-18] MEDS: FAMOTIDINE 20 MG TABLET PO SCH ×2 (11:24→20:59)
[2017-09-18] MEDS: SODIUM CHLORIDE FLUSH 10ML SYR IVF SCH ×2 (11:24→20:59)
[2017-09-18] MEDS: SENNA/DOCUSATE TABLET PO SCH (11:25)
[2017-09-18] MEDS: MULTIVITAMIN 1 TABLET PO SCH (11:25)
[2017-09-18] MEDS: GABAPENTIN 300 MG CAPSULE PO SCH ×3 (11:25→20:59)
[2017-09-18] MEDS ORDERED: BISACODYL 10 MG SUPP PR PRN (12:30)
[2017-09-18] MEDS ORDERED: MAGNESIUM HYDROXIDE 8%, 30ML UDC PO PRN (12:30)
[2017-09-18] MEDS ORDERED: PROMETHAZINE 25 MG/ML, 1ML IM PRN (12:30)
[2017-09-18] MEDS ORDERED: morphine SULFATE 10 MG/ML, 1ML IVPush PRN (12:30)
[2017-09-18] MEDS ORDERED: OXYcodone/APAP 10/325MG TABLET PO PRN (12:30)
[2017-09-18] MEDS ORDERED: ONDANSETRON 2MG/ML, 2ML IV PRN (12:30)
[2017-09-18 12:33] VITALS: BP 130/71
[2017-09-18] MEDS ORDERED: NITROGLYCERIN 0.4 MG BOTTLE (25 TABS) SL PRN (13:00)
[2017-09-18] MEDS ORDERED: ACETAMINOPHEN 325 MG TABLET PO PRN (13:00)
[2017-09-18 13:20] LABS: MEAN CORPUSCULAR HEMOGLOBIN 29.5 pg (27.5-34.5); MEAN CORPUSCULAR HGB CONC 33.1 g/dL (33.2-36.2); MEAN CORPUSCULAR VOLUME 89.3 fL (81-97); MEAN PLATELET VOLUME 7.7 fL (7.4-10.4); PLATELET COUNT 286 x10^3/uL (130-400); RED BLOOD COUNT 4.63 x10^6/uL (4.38-5.82); RED CELL DISTRIBUTION WIDTH 15.3 % (9.4-14.8)
[2017-09-18 13:25] LABS: ALBUMIN 2.9 g/dL (3.4-5.0); ANION GAP 11 mmol/L (5-15); CALCIUM 8.9 mg/dL (8.5-10.1); CHLORIDE 99 mmol/L (98-107)
[2017-09-18 13:30] LABS: ALANINE AMINOTRANSFERASE 11 U/L (12-78); ALKALINE PHOSPHATASE 107 U/L (45-117); CREATININE 0.65 mg/dL (0.7-1.3); TOTAL PROTEIN 7.7 g/dL (6.4-8.2)
[2017-09-18] MEDS: NS + 20MEQ KCL 1,000 ML IV SCH (14:05)
[2017-09-18 14:35] LABS: BASOPHILS % (AUTO) 0 % (0-1); EOSINOPHILS # (AUTO) 0.03 x10^3/uL (0-0.4); EOSINOPHILS % (AUTO) 0 % (1-7); LYMPHOCYTES # (AUTO) 0.78 x10^3/uL (1-3.4); LYMPHOCYTES % (AUTO) 6 % (22-44); MD SCAN; MONOCYTES # (AUTO) 0.17 x10^3/uL (0.2-0.8); MONOCYTES % (AUTO) 1 % (2-9); NEUTROPHILS # (AUTO) 11.57 x10^3/uL (1.8-6.8); NEUTROPHILS % (AUTO) 92 % (42-75)
[2017-09-18] MEDS: OXYcodone/APAP 10/325MG TABLET PO PRN ×2 (14:53→20:59)
[2017-09-18] MEDS: METHOCARBAMOL 750 MG TABLET PO PRN ×2 (14:54→23:16)
[2017-09-18] MEDS ORDERED: PROPOFOL 10 MG/ML, 20ML ONE (15:48)
[2017-09-18] MEDS ORDERED: PROPOFOL 10 MG/ML, 50ML ONE (15:49)
[2017-09-18 18:59] VITALS: BP 106/53
[2017-09-18] MEDS: ATORVASTATIN 80 MG TABLET PO SCH (20:59)
[2017-09-18] MEDS: LOSARTAN 25MG TABLET PO SCH (21:00)
[2017-09-18 23:12] VITALS: BP 155/70
[2017-09-19] MEDS: NS + 20MEQ KCL 1,000 ML IV SCH ×2 (01:00→13:30)
[2017-09-19] MEDS: OXYcodone/APAP 10/325MG TABLET PO PRN ×4 (02:36→21:04)
[2017-09-19 03:55] VITALS: BP 102/59
[2017-09-19 05:41] LABS: BASOPHILS # (AUTO) 0.04 x10^3/uL (0-0.1); BASOPHILS % (AUTO) 0 % (0-1); EOSINOPHILS # (AUTO) 0.02 x10^3/uL (0-0.4); EOSINOPHILS % (AUTO) 0 % (1-7); LYMPHOCYTES # (AUTO) 1.42 x10^3/uL (1-3.4); LYMPHOCYTES % (AUTO) 9 % (22-44); MD NO; MEAN CORPUSCULAR HEMOGLOBIN 29.2 pg (27.5-34.5); MEAN CORPUSCULAR HGB CONC 33.3 g/dL (33.2-36.2); MEAN CORPUSCULAR VOLUME 87.8 fL (81-97); MEAN PLATELET VOLUME 7.9 fL (7.4-10.4); MONOCYTES # (AUTO) 1.08 x10^3/uL (0.2-0.8); MONOCYTES % (AUTO) 7 % (2-9); NEUTROPHILS # (AUTO) 12.72 x10^3/uL (1.8-6.8); NEUTROPHILS % (AUTO) 83 % (42-75); PLATELET COUNT 281 x10^3/uL (130-400); RED BLOOD COUNT 3.71 x10^6/uL (4.38-5.82); RED CELL DISTRIBUTION WIDTH 14.8 % (9.4-14.8)
[2017-09-19 05:50] LABS: CHLORIDE 103 mmol/L (98-107)
[2017-09-19 05:57] LABS: ANION GAP 10 mmol/L (5-15); CALCIUM 8.6 mg/dL (8.5-10.1); CREATININE 0.58 mg/dL (0.7-1.3)
[2017-09-19 08:23] VITALS: BP 120/68
[2017-09-19] MEDS: MAGNESIUM HYDROXIDE 8%, 30ML UDC PO SCH (08:45)
[2017-09-19] MEDS: HYDROCHLOROTHIAZIDE 25 MG TABLET PO SCH (08:46)
[2017-09-19] MEDS: AMLODIPINE 5 MG TABLET PO SCH (08:46)
[2017-09-19] MEDS: SENNA/DOCUSATE TABLET PO SCH (08:46)
[2017-09-19] MEDS: GABAPENTIN 300 MG CAPSULE PO SCH ×3 (08:46→21:04)
[2017-09-19] MEDS: MULTIVITAMIN 1 TABLET PO SCH (08:46)
[2017-09-19] MEDS: CARVEDILOL 25 MG TABLET PO SCH (08:47)
[2017-09-19] MEDS: SODIUM CHLORIDE FLUSH 10ML SYR IVF SCH ×2 (08:48→21:07)
[2017-09-19] MEDS: METHOCARBAMOL 750 MG TABLET PO PRN ×2 (08:53→16:18)
[2017-09-19] MEDS: FAMOTIDINE 20 MG TABLET PO SCH ×3 (08:53→21:05)
[2017-09-19 14:40] VITALS: BP 112/66
[2017-09-19 19:00] VITALS: BP 108/60
[2017-09-19] MEDS: LOSARTAN 25MG TABLET PO SCH (21:00)
[2017-09-19] MEDS: ATORVASTATIN 80 MG TABLET PO SCH (21:04)
[2017-09-20] MEDS: OXYcodone/APAP 10/325MG TABLET PO PRN ×4 (01:15→19:38)
[2017-09-20] MEDS: METHOCARBAMOL 750 MG TABLET PO PRN ×3 (01:15→16:58)
[2017-09-20] MEDS: NS + 20MEQ KCL 1,000 ML IV SCH ×2 (01:16→14:30)
[2017-09-20 03:42] VITALS: BP 105/64
[2017-09-20 05:44] LABS: BASOPHILS # (AUTO) 0.05 x10^3/uL (0-0.1); BASOPHILS % (AUTO) 0 % (0-1); EOSINOPHILS # (AUTO) 0.54 x10^3/uL (0-0.4); EOSINOPHILS % (AUTO) 5 % (1-7); LYMPHOCYTES # (AUTO) 2.61 x10^3/uL (1-3.4); LYMPHOCYTES % (AUTO) 22 % (22-44); MD NO; MEAN CORPUSCULAR HEMOGLOBIN 29.8 pg (27.5-34.5); MEAN CORPUSCULAR HGB CONC 33.5 g/dL (33.2-36.2); MEAN CORPUSCULAR VOLUME 89.1 fL (81-97); MEAN PLATELET VOLUME 8.1 fL (7.4-10.4); MONOCYTES # (AUTO) 1.31 x10^3/uL (0.2-0.8); MONOCYTES % (AUTO) 11 % (2-9); NEUTROPHILS # (AUTO) 7.48 x10^3/uL (1.8-6.8); NEUTROPHILS % (AUTO) 62 % (42-75); PLATELET COUNT 276 x10^3/uL (130-400); RED BLOOD COUNT 3.47 x10^6/uL (4.38-5.82); RED CELL DISTRIBUTION WIDTH 14.7 % (9.4-14.8)
[2017-09-20 05:55] LABS: CHLORIDE 102 mmol/L (98-107)
[2017-09-20 06:02] LABS: ANION GAP 7 mmol/L (5-15); CALCIUM 8.4 mg/dL (8.5-10.1)
[2017-09-20 07:08] VITALS: BP 113/71
[2017-09-20] MEDS: MAGNESIUM HYDROXIDE 8%, 30ML UDC PO SCH (09:18)
[2017-09-20] MEDS: CARVEDILOL 25 MG TABLET PO SCH (09:18)
[2017-09-20] MEDS: MULTIVITAMIN 1 TABLET PO SCH (09:18)
[2017-09-20] MEDS: SODIUM CHLORIDE FLUSH 10ML SYR IVF SCH ×2 (09:18→21:45)
[2017-09-20] MEDS: SENNA/DOCUSATE TABLET PO SCH (09:18)
[2017-09-20] MEDS: AMLODIPINE 5 MG TABLET PO SCH (09:18)
[2017-09-20] MEDS: GABAPENTIN 300 MG CAPSULE PO SCH ×3 (09:18→21:46)
[2017-09-20] MEDS: HYDROCHLOROTHIAZIDE 25 MG TABLET PO SCH (09:18)
[2017-09-20 14:25] VITALS: BP 98/63
[2017-09-20 18:44] VITALS: BP 102/64
[2017-09-20] MEDS: ATORVASTATIN 80 MG TABLET PO SCH (21:45)
[2017-09-20] MEDS: LOSARTAN 25MG TABLET PO SCH (21:45)
[2017-09-20] MEDS: FAMOTIDINE 20 MG TABLET PO SCH (21:46)
[2017-09-21 01:01] VITALS: BP 112/67
[2017-09-21] MEDS: OXYcodone/APAP 10/325MG TABLET PO PRN ×4 (01:04→21:15)
[2017-09-21] MEDS: METHOCARBAMOL 750 MG TABLET PO PRN ×3 (01:04→16:11)
[2017-09-21] MEDS: NS + 20MEQ KCL 1,000 ML IV SCH ×2 (03:00→15:30)
[2017-09-21 05:33] LABS: BASOPHILS # (AUTO) 0.04 x10^3/uL (0-0.1); BASOPHILS % (AUTO) 0 % (0-1); EOSINOPHILS # (AUTO) 0.71 x10^3/uL (0-0.4); EOSINOPHILS % (AUTO) 6 % (1-7); LYMPHOCYTES # (AUTO) 2.75 x10^3/uL (1-3.4); LYMPHOCYTES % (AUTO) 24 % (22-44); MD NO; MEAN CORPUSCULAR HEMOGLOBIN 29.6 pg (27.5-34.5); MEAN CORPUSCULAR HGB CONC 33.3 g/dL (33.2-36.2); MEAN PLATELET VOLUME 7.3 fL (7.4-10.4); MONOCYTES # (AUTO) 1.16 x10^3/uL (0.2-0.8); MONOCYTES % (AUTO) 10 % (2-9); NEUTROPHILS # (AUTO) 6.66 x10^3/uL (1.8-6.8); NEUTROPHILS % (AUTO) 59 % (42-75); PLATELET COUNT 308 x10^3/uL (130-400); RED BLOOD COUNT 3.76 x10^6/uL (4.38-5.82); RED CELL DISTRIBUTION WIDTH 15.5 % (9.4-14.8)
[2017-09-21 05:41] LABS: CHLORIDE 101 mmol/L (98-107)
[2017-09-21 05:47] LABS: ANION GAP 5 mmol/L (5-15); CALCIUM 8.6 mg/dL (8.5-10.1); CREATININE 0.61 mg/dL (0.7-1.3)
[2017-09-21 07:37] VITALS: BP 114/71
[2017-09-21] MEDS: MAGNESIUM HYDROXIDE 8%, 30ML UDC PO SCH (09:00)
[2017-09-21] MEDS: CARVEDILOL 25 MG TABLET PO SCH (09:21)
[2017-09-21] MEDS: GABAPENTIN 300 MG CAPSULE PO SCH ×3 (09:22→21:15)
[2017-09-21] MEDS: FAMOTIDINE 20 MG TABLET PO SCH ×2 (09:22→21:15)
[2017-09-21] MEDS: HYDROCHLOROTHIAZIDE 25 MG TABLET PO SCH (09:22)
[2017-09-21] MEDS: SENNA/DOCUSATE TABLET PO SCH (09:22)
[2017-09-21] MEDS: MULTIVITAMIN 1 TABLET PO SCH (09:23)
[2017-09-21] MEDS: AMLODIPINE 5 MG TABLET PO SCH (09:23)
[2017-09-21] MEDS: SODIUM CHLORIDE FLUSH 10ML SYR IVF SCH ×2 (09:28→21:16)
[2017-09-21 13:51] VITALS: BP 110/69
[2017-09-21 18:58] VITALS: BP 108/69
[2017-09-21] MEDS: LOSARTAN 25MG TABLET PO SCH (21:16)
[2017-09-21] MEDS: ATORVASTATIN 80 MG TABLET PO SCH (21:17)
[2017-09-22 00:18] VITALS: BP 104/63
[2017-09-22] MEDS: NS + 20MEQ KCL 1,000 ML IV SCH ×2 (04:00→16:24)
[2017-09-22] MEDS: OXYcodone/APAP 10/325MG TABLET PO PRN ×4 (04:33→21:04)
[2017-09-22] MEDS: METHOCARBAMOL 750 MG TABLET PO PRN ×2 (04:33→14:43)
[2017-09-22 04:35] LABS: BASOPHILS # (AUTO) 0.09 x10^3/uL (0-0.1); BASOPHILS % (AUTO) 1 % (0-1); EOSINOPHILS # (AUTO) 0.82 x10^3/uL (0-0.4); EOSINOPHILS % (AUTO) 7 % (1-7); LYMPHOCYTES # (AUTO) 2.39 x10^3/uL (1-3.4); LYMPHOCYTES % (AUTO) 21 % (22-44); MD NO; MEAN CORPUSCULAR HEMOGLOBIN 29.7 pg (27.5-34.5); MEAN CORPUSCULAR HGB CONC 33.5 g/dL (33.2-36.2); MEAN CORPUSCULAR VOLUME 88.7 fL (81-97); MEAN PLATELET VOLUME 7.3 fL (7.4-10.4); MONOCYTES # (AUTO) 1.01 x10^3/uL (0.2-0.8); MONOCYTES % (AUTO) 9 % (2-9); NEUTROPHILS # (AUTO) 7.15 x10^3/uL (1.8-6.8); NEUTROPHILS % (AUTO) 62 % (42-75); PLATELET COUNT 314 x10^3/uL (130-400); RED BLOOD COUNT 3.83 x10^6/uL (4.38-5.82); RED CELL DISTRIBUTION WIDTH 15.5 % (9.4-14.8)
[2017-09-22 04:48] LABS: ANION GAP 7 mmol/L (5-15); CALCIUM 8.5 mg/dL (8.5-10.1); CHLORIDE 100 mmol/L (98-107); CREATININE 0.55 mg/dL (0.7-1.3)
[2017-09-22 07:03] VITALS: BP 102/63
[2017-09-22] MEDS: AMLODIPINE 5 MG TABLET PO SCH (08:42)
[2017-09-22] MEDS: MULTIVITAMIN 1 TABLET PO SCH (08:42)
[2017-09-22] MEDS: SENNA/DOCUSATE TABLET PO SCH (08:42)
[2017-09-22] MEDS: CARVEDILOL 25 MG TABLET PO SCH (08:43)
[2017-09-22] MEDS: FAMOTIDINE 20 MG TABLET PO SCH ×2 (08:43→20:50)
[2017-09-22] MEDS: MAGNESIUM HYDROXIDE 8%, 30ML UDC PO SCH (08:43)
[2017-09-22] MEDS: GABAPENTIN 300 MG CAPSULE PO SCH ×3 (08:43→20:50)
[2017-09-22] MEDS: HYDROCHLOROTHIAZIDE 25 MG TABLET PO SCH (08:43)
[2017-09-22] MEDS: SODIUM CHLORIDE FLUSH 10ML SYR IVF SCH ×2 (08:43→20:51)
[2017-09-22] MEDS ORDERED: LOSA25TA2 PO (11:35)
[2017-09-22] MEDS ORDERED: METH750T2 PO (11:35)
[2017-09-22] MEDS ORDERED: ONDA4TAB13 PO (11:35)
[2017-09-22] MEDS ORDERED: POLY17PO5 PO (11:35)
[2017-09-22] MEDS ORDERED: OXYC5SOL8 PO (11:35)
[2017-09-22 13:10] VITALS: BP 96/60
[2017-09-22 18:35] VITALS: BP 104/64
[2017-09-22] MEDS: ATORVASTATIN 80 MG TABLET PO SCH (20:50)
[2017-09-22] MEDS: LOSARTAN 25MG TABLET PO SCH (20:53)
[2017-09-23 01:45] VITALS: BP 118/71
[2017-09-23] MEDS: METHOCARBAMOL 750 MG TABLET PO PRN ×4 (03:03→23:35)
[2017-09-23] MEDS: OXYcodone/APAP 10/325MG TABLET PO PRN ×4 (03:04→21:06)
[2017-09-23] MEDS: NS + 20MEQ KCL 1,000 ML IV SCH ×3 (05:00→22:13)
[2017-09-23 07:16] VITALS: BP 117/73
[2017-09-23] MEDS: MAGNESIUM HYDROXIDE 8%, 30ML UDC PO SCH (07:59)
[2017-09-23] MEDS: MULTIVITAMIN 1 TABLET PO SCH (07:59)
[2017-09-23] MEDS: SENNA/DOCUSATE TABLET PO SCH (07:59)
[2017-09-23] MEDS: HYDROCHLOROTHIAZIDE 25 MG TABLET PO SCH (07:59)
[2017-09-23] MEDS: AMLODIPINE 5 MG TABLET PO SCH (07:59)
[2017-09-23] MEDS: FAMOTIDINE 20 MG TABLET PO SCH ×2 (07:59→21:06)
[2017-09-23] MEDS: CARVEDILOL 25 MG TABLET PO SCH (08:00)
[2017-09-23] MEDS: GABAPENTIN 300 MG CAPSULE PO SCH ×3 (08:00→21:05)
[2017-09-23] MEDS: SODIUM CHLORIDE FLUSH 10ML SYR IVF SCH ×2 (08:01→21:09)
[2017-09-23 13:50] VITALS: BP 109/64
[2017-09-23 19:00] VITALS: BP 126/69
[2017-09-23] MEDS: LOSARTAN 25MG TABLET PO SCH (21:00)
[2017-09-23] MEDS: ATORVASTATIN 80 MG TABLET PO SCH (21:06)
[2017-09-24 01:07] VITALS: BP 113/69
[2017-09-24] MEDS: OXYcodone/APAP 10/325MG TABLET PO PRN ×3 (04:38→12:26)
[2017-09-24 07:17] VITALS: BP 105/67
[2017-09-24] MEDS: HYDROCHLOROTHIAZIDE 25 MG TABLET PO SCH ×2 (09:00→09:02)
[2017-09-24] MEDS: MAGNESIUM HYDROXIDE 8%, 30ML UDC PO SCH (09:00)
[2017-09-24] MEDS: METHOCARBAMOL 750 MG TABLET PO PRN (09:01)
[2017-09-24] MEDS: CARVEDILOL 25 MG TABLET PO SCH (09:01)
[2017-09-24] MEDS: AMLODIPINE 5 MG TABLET PO SCH (09:01)
[2017-09-24] MEDS: MULTIVITAMIN 1 TABLET PO SCH (09:01)
[2017-09-24] MEDS: GABAPENTIN 300 MG CAPSULE PO SCH (09:01)
[2017-09-24] MEDS: SENNA/DOCUSATE TABLET PO SCH (09:02)
[2017-09-24] MEDS: FAMOTIDINE 20 MG TABLET PO SCH (09:02)
[2017-09-24] MEDS: SODIUM CHLORIDE FLUSH 10ML SYR IVF SCH (09:03)
== END 2017-09-24 13:42 | DRG 29 ==
LOC: 4NOR 09-03 01:12
PROVIDERS: ADMIT Internal Medicine; ATTEND Internal Medicine
PROC: 009Y3ZZ Drainage of Lumbar Spinal Cord, Percutaneous Approach (ICD-10-PCS; 2017-09-05)
PROC: B02B1ZZ Computerized Tomography (CT Scan) of Spinal Cord using Low Osmolar Contrast (ICD-10-PCS; 2017-09-05)
PROC: 009Y3ZZ Drainage of Lumbar Spinal Cord, Percutaneous Approach (ICD-10-PCS; 2017-09-08)
PROC: B02B1ZZ Computerized Tomography (CT Scan) of Spinal Cord using Low Osmolar Contrast (ICD-10-PCS; 2017-09-08)
PROC: 0SB20ZZ Excision of Lumbar Vertebral Disc, Open Approach (ICD-10-PCS; 2017-09-18)
PROC: 01NB0ZZ Release Lumbar Nerve, Open Approach (ICD-10-PCS; 2017-09-18)
PROC: 0QB00ZX Excision of Lumbar Vertebra, Open Approach, Diagnostic (ICD-10-PCS; principal; 2017-09-18 07:00)
DX: G06.1 Intraspinal abscess and granuloma (principal); M46.26 Osteomyelitis of vertebra, lumbar region; G89.29 Other chronic pain; E11.51 Type 2 diabetes mellitus with diabetic peripheral angiopathy without gangrene; E78.5 Hyperlipidemia, unspecified; E66.01 Morbid (severe) obesity due to excess calories; G47.30 Sleep apnea, unspecified; E11.69 Type 2 diabetes mellitus with other specified complication; I10 Essential (primary) hypertension; I25.10 Atherosclerotic heart disease of native coronary artery without angina pectoris; K59.00 Constipation, unspecified; M46.46 Discitis, unspecified, lumbar region; Z53.9 Procedure and treatment not carried out, unspecified reason; M79.605 Pain in left leg; Z80.0 Family history of malignant neoplasm of digestive organs; Z87.891 Personal history of nicotine dependence; Z95.1 Presence of aortocoronary bypass graft; Z68.38 Body mass index [BMI] 38.0-38.9, adult; Z79.01 Long term (current) use of anticoagulants; Z86.14 Personal history of Methicillin resistant Staphylococcus aureus infection; Z89.519 Acquired absence of unspecified leg below knee; Z80.8 Family history of malignant neoplasm of other organs or systems; Z90.49 Acquired absence of other specified parts of digestive tract; Z98.1 Arthrodesis status; Z88.8 Allergy status to other drugs, medicaments and biological substances; Z88.6 Allergy status to analgesic agent; Z95.820 Peripheral vascular angioplasty status with implants and grafts
CPT/HCPCS: 36415; 62267; 71045; 72100; 72158; 75989; 80048; 80053; 80061; 81003; 82962; 83036; 83735; 84439; 84443; 85025; 85610; 85651; 85730; 86140; 86141; 86171; 86331; 86480; 86850; 86900; 87015; 87040; 87070; 87075; 87102; 87116; 87205; 87206; 88112; 88305; 93005; 99156; 99157; A9585; J0171; J0696; J1100; J1170; J1644; J2250; J2405; J2704; J2710; J3010; J3370; J3480; J3490; J2310; J2370; J2765; J2930; J7030

== ENCOUNTER 2017-12-26 06:37 | Day surgery (SDC) | payer MEDICARE ==
[~2017-12-26] VITALS: Ht 180.3 cm; Wt 131.7 kg
[~2017-12-26 06:37] MED LIST changes: +ACET325C PO; -AMLO5TAB2 PO; +AMLO5TAB7 PO; +DOCU-131 PO; +HYDR-3653 PO; -HYDR-882 PO; +HYDR25TA6 PO; -LOSA100T6 PO; +LOSA100T7 PO; +LOSA25TA2 PO; +MAGN2400 PO; +METH750T2 PO; +ONDA4TAB13 PO; +OXYC-307 PO; +OXYC5SOL8 PO; +POLY17PO5 PO; +RANI150C PO; +SENN-87 PO
[2017-12-26 07:51] VITALS: BP 108/66
[2017-12-26] MEDS ORDERED: NAPR220C PO (07:51)
[2017-12-26] MEDS ORDERED: ATOR80TA PO (07:51)
[2017-12-26] MEDS ORDERED: AMLO5TAB4 PO (07:51)
[2017-12-26] MEDS ORDERED: NITR0.4T SL (07:51)
[2017-12-26] MEDS ORDERED: FURO40TA6 PO (07:51)
[2017-12-26] MEDS ORDERED: POTA10TA31 PO (07:51)
[2017-12-26] MEDS ORDERED: DOCU-180 PO (07:51)
[2017-12-26] MEDS ORDERED: METH500T97 PO (07:51)
[2017-12-26] MEDS ORDERED: MULT-6 PO (07:51)
[2017-12-26] MEDS ORDERED: CARV25TA12 PO (07:51)
[2017-12-26] MEDS ORDERED: GABA300C10 PO (07:51)
[2017-12-26] MEDS ORDERED: OXYC-307 PO (07:51)
[2017-12-26] MEDS ORDERED: WARF7.5T PO (07:51)
[2017-12-26] MEDS ORDERED: OMEG1CAP23 PO (07:51)
[2017-12-26 07:54] LABS: INTERNATIONAL NORMALIZED RATIO 1.09 (0.93-1.1); PROTHROMBIN TIME 11.3 Seconds (9.6-11.5)
[2017-12-26] MEDS ORDERED: LIDOCAINE-MPF 1%, 5ML ONE ×2 (07:54→09:21)
[2017-12-26] MEDS ORDERED: FLUMAZENIL 0.1 MG/1 ML, 5ML ONE (08:09)
[2017-12-26] MEDS ORDERED: NALOXONE 1 MG/ML, 2ML ONE (08:09)
[2017-12-26] MEDS ORDERED: FENTANYL PF 100 MCG/2ML ONE (08:09)
[2017-12-26] MEDS ORDERED: MIDAZOLAM 1 MG/ML, 5ML ONE (08:09)
== END 2017-12-26 10:25 | disposition home or self-care (01) ==
LOC: OUT 06:37
PROVIDERS: ATTEND Nurse Practitioner Critical Care Medicine
DX: M46.46 Discitis, unspecified, lumbar region (principal); I25.10 Atherosclerotic heart disease of native coronary artery without angina pectoris; I10 Essential (primary) hypertension; E78.5 Hyperlipidemia, unspecified; E66.01 Morbid (severe) obesity due to excess calories; E11.9 Type 2 diabetes mellitus without complications; Z79.01 Long term (current) use of anticoagulants; Z82.49 Family history of ischemic heart disease and other diseases of the circulatory system; Z79.899 Other long term (current) drug therapy; Z90.49 Acquired absence of other specified parts of digestive tract; Z88.6 Allergy status to analgesic agent; Z88.8 Allergy status to other drugs, medicaments and biological substances; Z68.38 Body mass index [BMI] 38.0-38.9, adult; Z87.891 Personal history of nicotine dependence; Z95.1 Presence of aortocoronary bypass graft
CPT/HCPCS: 36415; 62267; 77012; 85610; 87015; 87070; 87075; 87102; 87116; 87205; 87206; 99156; J2250; J3010; 99157; J2310

== ENCOUNTER → 2018-06-15 | Outpatient (CLI) | payer MEDICARE ==
[~2018-06-15] MED LIST changes: -ACET325C PO; +ACET325C3 PO; +AMLO-150 PO; +AMLO5TAB4 PO; -AMLO5TAB7 PO; -ASPI-621 PO; +ASPI81TA45 PO; +ATOR80TA PO; +CARV25TA12 PO; +DOCU-180 PO; +FURO40TA6 PO; +LOSA100T14 PO; -LOSA100T7 PO; +METH500T97 PO; +MULT-6 PO; +NAPR220C62 PO; +OMEG1CAP23 PO; +POTA10TA31 PO; -SENN-87 PO; +SENN-88 PO
== END | disposition home or self-care (01) ==
LOC: CVU 12:29
PROVIDERS: ATTEND Surgery
DX: I74.3 Embolism and thrombosis of arteries of the lower extremities (principal); I74.2 Embolism and thrombosis of arteries of the upper extremities; I10 Essential (primary) hypertension; E78.5 Hyperlipidemia, unspecified; E11.9 Type 2 diabetes mellitus without complications; I25.10 Atherosclerotic heart disease of native coronary artery without angina pectoris
CPT/HCPCS: 93925; 93970

== ENCOUNTER 2018-07-03 12:49 | Inpatient (IN) | payer MEDICARE ==
[~2018-07-03] VITALS: Ht 182.9 cm; Wt 146.8 kg
[~2018-07-03 12:49] MED LIST changes: +CHOL10003 PO; -NITR0.4T SL; +NITR0.4T41 SL; +VITA1CAP5 PO
[2018-07-03] MEDS ORDERED: LIDOCAINE-MPF 1%, 5ML ONE (14:16)
[2018-07-03 14:17] VITALS: BP 145/77
[2018-07-03 14:22] LABS: BASOPHILS # (AUTO) 0.02 x10^3/uL (0-0.1); BASOPHILS % (AUTO) 0 % (0-1); EOSINOPHILS # (AUTO) 0.24 x10^3/uL (0-0.4); EOSINOPHILS % (AUTO) 3 % (1-7); LYMPHOCYTES # (AUTO) 1.62 x10^3/uL (1-3.4); LYMPHOCYTES % (AUTO) 19 % (22-44); MD NO; MEAN CORPUSCULAR HEMOGLOBIN 29.4 pg (27.5-34.5); MEAN CORPUSCULAR HGB CONC 32.4 g/dL (33.2-36.2); MEAN CORPUSCULAR VOLUME 90.8 fL (81-97); MEAN PLATELET VOLUME 8.1 fL (7.4-10.4); MONOCYTES # (AUTO) 0.91 x10^3/uL (0.2-0.8); MONOCYTES % (AUTO) 11 % (2-9); NEUTROPHILS # (AUTO) 5.67 x10^3/uL (1.8-6.8); NEUTROPHILS % (AUTO) 67 % (42-75); PLATELET COUNT 206 x10^3/uL (130-400); RED BLOOD COUNT 4.43 x10^6/uL (4.38-5.82); RED CELL DISTRIBUTION WIDTH 15.4 % (9.4-14.8)
[2018-07-03] MEDS ORDERED: SODIUM CHLORIDE 0.45% 1,000 ML IV STA (14:22)
[2018-07-03 14:29] LABS: ALANINE AMINOTRANSFERASE 10 U/L (12-78); ALBUMIN 3.1 g/dL (3.4-5.0); ANION GAP 10 mmol/L (5-15); CALCIUM 8.8 mg/dL (8.5-10.1); CHLORIDE 105 mmol/L (98-107); CREATININE 0.72 mg/dL (0.7-1.3)
[2018-07-03 14:30] LABS: INTERNATIONAL NORMALIZED RATIO 1.15 (0.93-1.1)
[2018-07-03] MEDS ORDERED: SODIUM CHLORIDE 0.45% 1,000 ML IV SCH (14:30)
[2018-07-03 14:31] LABS: ALKALINE PHOSPHATASE 83 U/L (45-117); BILIRUBIN,TOTAL 1.7 mg/dL (0.2-1.0)
[2018-07-03 16:40] VITALS: BP 122/73
[2018-07-03] MEDS: SODIUM CHLORIDE 0.45% 1,000 ML IV SCH (17:00)
[2018-07-03] MEDS ORDERED: NITROGLYCERIN 0.4 MG BOTTLE (25 TABS) SL PRN (18:30)
[2018-07-03] MEDS: OXYcodone/APAP 10/325MG TABLET PO PRN (18:32)
[2018-07-03 18:55] VITALS: BP 150/78
[2018-07-03] MEDS: GABAPENTIN 300 MG CAPSULE PO SCH (19:43)
[2018-07-03] MEDS: ATORVASTATIN 80 MG TABLET PO SCH (19:43)
[2018-07-03] MEDS: DOCUSATE 100 MG CAPSULE PO SCH (19:43)
[2018-07-03] MEDS: METHOCARBAMOL 500 MG TABLET PO PRN (23:15)
[2018-07-03 23:34] VITALS: BP 114/67
[2018-07-04] MEDS: ACETAMINOPHEN 325 MG TABLET PO PRN ×2 (00:15→10:43)
[2018-07-04] MEDS: SODIUM CHLORIDE 0.45% 1,000 ML IV SCH (00:15)
[2018-07-04 04:23] VITALS: BP 144/79
[2018-07-04] MEDS: CARVEDILOL 25 MG TABLET PO SCH ×2 (05:40→17:53)
[2018-07-04] MEDS: OXYcodone/APAP 10/325MG TABLET PO PRN (06:40)
[2018-07-04 06:56] VITALS: BP 106/54
[2018-07-04] MEDS: GABAPENTIN 300 MG CAPSULE PO SCH ×2 (07:48→21:02)
[2018-07-04] MEDS: FUROSEMIDE 40 MG TABLET PO SCH (07:48)
[2018-07-04] MEDS: CHOLECALCIFEROL 1,000 UNIT TABLET PO SCH (07:49)
[2018-07-04] MEDS: POTASSIUM CHLORIDE 10 MEQ TABLET.ER PO SCH (07:49)
[2018-07-04] MEDS: MULTIVITS,STRESS FORMULA 1 TABLET PO SCH (07:49)
[2018-07-04] MEDS: DOCUSATE 100 MG CAPSULE PO SCH ×2 (07:49→21:02)
[2018-07-04] MEDS: AMLODIPINE 5 MG TABLET PO SCH (07:49)
[2018-07-04] MEDS: METHOCARBAMOL 500 MG TABLET PO PRN (10:43)
[2018-07-04] MEDS ORDERED: LABETALOL 5MG/ML, 20ML IV PRN (13:00)
[2018-07-04] MEDS ORDERED: PROMETHAZINE 25 MG/ML, 1ML IM PRN (13:00)
[2018-07-04] MEDS ORDERED: hydrALAzine 20 MG/ML, 1ML IV PRN (13:00)
[2018-07-04] MEDS ORDERED: OXYcodone 5 MG/5 ML ORAL.SOL UDC PO PRN (13:00)
[2018-07-04] MEDS ORDERED: FENTANYL PF 100 MCG/2ML IV PRN (13:00)
[2018-07-04] MEDS ORDERED: ALBUTEROL/IPRATROPIUM 2.5MG/0.5MG, 3 ML NPPB PRN (13:00)
[2018-07-04] MEDS ORDERED: LORazepam 2 MG/ML, 1ML IVPush PRN (13:00)
[2018-07-04] MEDS ORDERED: METOPROLOL 1 MG/ML, 5ML IV PRN (13:00)
[2018-07-04] MEDS ORDERED: BACITRACIN 50,000 UNIT ONE (13:26)
[2018-07-04] MEDS ORDERED: THROMBIN 20,000 UNIT VIAL TP ONE (13:26)
[2018-07-04] MEDS ORDERED: PROTAMINE SULFATE 10 MG/ML, 5ML ONE (13:26)
[2018-07-04] MEDS ORDERED: PHENYLEPHRINE 10 MG/ML ONE ×2 (13:26)
[2018-07-04] MEDS ORDERED: LIDOCAINE-MPF 2% ,5ML ONE (13:26)
[2018-07-04] MEDS ORDERED: PROPOFOL 10 MG/ML, 20ML ONE (13:26)
[2018-07-04] MEDS ORDERED: SUCCINYLCHOLINE 20 MG/ML, 10ML ONE (13:26)
[2018-07-04] MEDS ORDERED: ROCURONIUM 10 MG/ML,10ML ONE (13:26)
[2018-07-04] MEDS ORDERED: MIDAZOLAM 1 MG/ML, 2ML ONE ×2 (13:26)
[2018-07-04] MEDS ORDERED: HEPARIN 1,000 UNITS/ML, 10ML ONE (13:26)
[2018-07-04] MEDS ORDERED: GLYCOPYRROLATE 0.2MG/1ML, 5ML ONE (13:26)
[2018-07-04] MEDS ORDERED: FENTANYL PF 100 MCG/2ML ONE ×2 (13:26)
[2018-07-04] MEDS ORDERED: ONDANSETRON 2MG/ML, 2ML ONE (13:26)
[2018-07-04] MEDS ORDERED: LACTATED RINGERS 1,000 ML IV SCH (13:30)
[2018-07-04] MEDS: HYDROmorphone 2 MG/ML, 1ML IVPush PRN ×2 (16:04→16:42)
[2018-07-04 17:02] VITALS: BP 125/83
[2018-07-04] MEDS ORDERED: D5%-0.45NACL+KCL 20MEQ 1,000 ML IV SCH (17:30)
[2018-07-04] MEDS ORDERED: morphine SULFATE 10 MG/ML, 1ML IV PRN (17:30)
[2018-07-04 17:54] VITALS: BP 153/80
[2018-07-04 18:16] LABS: HEMOGLOBIN A1C 6.1 % (4.2-6.3)
[2018-07-04] MEDS ORDERED: WARFARIN 7.5 MG TABLET PO-COUM SCH (19:00)
[2018-07-04 19:21] VITALS: BP 104/61
[2018-07-04] MEDS: HYDROcodone/APAP 5/325 TABLET PO PRN ×2 (19:36→20:12)
[2018-07-04] MEDS: ATORVASTATIN 80 MG TABLET PO SCH (21:02)
[2018-07-04 23:54] VITALS: BP 132/71
[2018-07-05] MEDS: HYDROcodone/APAP 5/325 TABLET PO PRN ×5 (00:14→21:33)
[2018-07-05 04:03] VITALS: BP 96/58
[2018-07-05 04:47] LABS: BASOPHILS # (AUTO) 0.04 x10^3/uL (0-0.1); BASOPHILS % (AUTO) 0 % (0-1); EOSINOPHILS # (AUTO) 0.17 x10^3/uL (0-0.4); EOSINOPHILS % (AUTO) 2 % (1-7); LYMPHOCYTES # (AUTO) 1.38 x10^3/uL (1-3.4); LYMPHOCYTES % (AUTO) 14 % (22-44); MD NO; MEAN CORPUSCULAR HEMOGLOBIN 29.5 pg (27.5-34.5); MEAN PLATELET VOLUME 7.9 fL (7.4-10.4); MONOCYTES # (AUTO) 1.29 x10^3/uL (0.2-0.8); MONOCYTES % (AUTO) 14 % (2-9); NEUTROPHILS # (AUTO) 6.72 x10^3/uL (1.8-6.8); NEUTROPHILS % (AUTO) 70 % (42-75); PLATELET COUNT 188 x10^3/uL (130-400); RED BLOOD COUNT 3.99 x10^6/uL (4.38-5.82); RED CELL DISTRIBUTION WIDTH 15.5 % (9.4-14.8)
[2018-07-05 05:06] LABS: INTERNATIONAL NORMALIZED RATIO 1.11 (0.93-1.1); PROTHROMBIN TIME 11.6 Seconds (9.6-11.5)
[2018-07-05] MEDS: CARVEDILOL 25 MG TABLET PO SCH ×2 (05:06→18:12)
[2018-07-05] MEDS: CALCIUM CARBONATE 500 MG TAB.CHEW PO PRN ×5 (05:25→22:10)
[2018-07-05 07:45] VITALS: BP 120/68
[2018-07-05] MEDS: DOCUSATE 100 MG CAPSULE PO SCH ×2 (08:20→21:31)
[2018-07-05] MEDS: FUROSEMIDE 40 MG TABLET PO SCH (08:20)
[2018-07-05] MEDS: CHOLECALCIFEROL 1,000 UNIT TABLET PO SCH (08:20)
[2018-07-05] MEDS: AMLODIPINE 5 MG TABLET PO SCH (08:20)
[2018-07-05] MEDS: POTASSIUM CHLORIDE 10 MEQ TABLET.ER PO SCH (08:21)
[2018-07-05] MEDS: MULTIVITS,STRESS FORMULA 1 TABLET PO SCH (08:21)
[2018-07-05] MEDS: GABAPENTIN 300 MG CAPSULE PO SCH ×2 (08:21→21:31)
[2018-07-05] MEDS ORDERED: POLYETHYLENE GLYCOL 17 GM PACKET PO SCH (09:00)
[2018-07-05] MEDS ORDERED: SODIUM CHLORIDE NASAL SPRAY 45ML BOTTLE NAS SCH (10:30)
[2018-07-05] MEDS ORDERED: FLUTICASONE NASAL SPRAY 16GM NAS SCH (10:30)
[2018-07-05] MEDS ORDERED: HYDROcodone/APAP 5/325 TABLET ONE ×2 (10:46→15:00)
[2018-07-05] MEDS ORDERED: CALCIUM CARBONATE 500 MG TAB.CHEW ONE ×2 (10:48→15:01)
[2018-07-05 13:20] VITALS: BP 101/61
[2018-07-05] MEDS ORDERED: LACTULOSE 10 GM/15 ML UDC PO PRN ×2 (13:30→15:30)
[2018-07-05 13:45] VITALS: BP 101/61
[2018-07-05] MEDS ORDERED: morphine SULFATE 10 MG/ML, 1ML IV PRN (15:30)
[2018-07-05] MEDS ORDERED: NITROGLYCERIN 0.4 MG BOTTLE (25 TABS) SL PRN (15:30)
[2018-07-05] MEDS ORDERED: OXYcodone/APAP 10/325MG TABLET PO PRN (15:30)
[2018-07-05] MEDS ORDERED: WARFARIN 7.5 MG TABLET PO-COUM ONE ×2 (18:00)
[2018-07-05] MEDS: METHOCARBAMOL 500 MG TABLET PO PRN (18:45)
[2018-07-05 19:40] VITALS: BP_SYST 113; BP_SYST 93; BP_DIAS 60; BP_DIAS 62
[2018-07-05] MEDS: FLUTICASONE NASAL SPRAY 16GM NAS SCH (21:31)
[2018-07-05] MEDS: ATORVASTATIN 80 MG TABLET PO SCH (21:31)
[2018-07-05] MEDS: SODIUM CHLORIDE NASAL SPRAY 45ML BOTTLE NAS SCH (21:33)
[2018-07-06 00:44] VITALS: BP 153/68
[2018-07-06] MEDS: HYDROcodone/APAP 5/325 TABLET PO PRN ×4 (02:24→21:26)
[2018-07-06] MEDS: CALCIUM CARBONATE 500 MG TAB.CHEW PO PRN ×4 (02:24→21:25)
[2018-07-06 05:48] LABS: INTERNATIONAL NORMALIZED RATIO 1.15 (0.93-1.1)
[2018-07-06] MEDS: CARVEDILOL 25 MG TABLET PO SCH ×2 (06:47→17:06)
[2018-07-06 07:00] VITALS: BP 149/71
[2018-07-06] MEDS: FLUTICASONE NASAL SPRAY 16GM NAS SCH ×2 (09:00→21:27)
[2018-07-06] MEDS: SODIUM CHLORIDE NASAL SPRAY 45ML BOTTLE NAS SCH ×2 (09:00→21:27)
[2018-07-06] MEDS: MULTIVITS,STRESS FORMULA 1 TABLET PO SCH (09:26)
[2018-07-06] MEDS: DOCUSATE 100 MG CAPSULE PO SCH ×2 (09:26→21:26)
[2018-07-06] MEDS: CHOLECALCIFEROL 1,000 UNIT TABLET PO SCH (09:26)
[2018-07-06] MEDS: AMLODIPINE 5 MG TABLET PO SCH (09:26)
[2018-07-06] MEDS: GABAPENTIN 300 MG CAPSULE PO SCH ×2 (09:27→21:26)
[2018-07-06] MEDS: POTASSIUM CHLORIDE 10 MEQ TABLET.ER PO SCH (09:27)
[2018-07-06] MEDS: FUROSEMIDE 40 MG TABLET PO SCH (09:28)
[2018-07-06] MEDS: POLYETHYLENE GLYCOL 17 GM PACKET PO SCH (09:28)
[2018-07-06] MEDS: METHOCARBAMOL 500 MG TABLET PO PRN ×2 (10:14→17:07)
[2018-07-06 13:33] VITALS: BP 143/74
[2018-07-06 16:21] LABS: ANION GAP 6 mmol/L (5-15); CALCIUM 8.6 mg/dL (8.5-10.1); CHLORIDE 102 mmol/L (98-107); CREATININE 0.69 mg/dL (0.7-1.3)
[2018-07-06 16:35] LABS: BASOPHILS # (AUTO) 0.02 x10^3/uL (0-0.1); BASOPHILS % (AUTO) 0 % (0-1); EOSINOPHILS # (AUTO) 0.33 x10^3/uL (0-0.4); EOSINOPHILS % (AUTO) 3 % (1-7); LYMPHOCYTES # (AUTO) 1.37 x10^3/uL (1-3.4); LYMPHOCYTES % (AUTO) 14 % (22-44); MD NO; MEAN CORPUSCULAR HEMOGLOBIN 28.4 pg (27.5-34.5); MEAN CORPUSCULAR HGB CONC 30.6 g/dL (33.2-36.2); MEAN CORPUSCULAR VOLUME 92.6 fL (81-97); MEAN PLATELET VOLUME 8.5 fL (7.4-10.4); MONOCYTES # (AUTO) 0.95 x10^3/uL (0.2-0.8); MONOCYTES % (AUTO) 10 % (2-9); NEUTROPHILS # (AUTO) 7.29 x10^3/uL (1.8-6.8); NEUTROPHILS % (AUTO) 73 % (42-75); PLATELET COUNT 189 x10^3/uL (130-400); RED BLOOD COUNT 4.08 x10^6/uL (4.38-5.82); RED CELL DISTRIBUTION WIDTH 14.7 % (9.4-14.8)
[2018-07-06] MEDS ORDERED: WARFARIN 5 MG TABLET PO-COUM ONE (17:02)
[2018-07-06] MEDS ORDERED: WARFARIN 10 MG TABLET PO-COUM ONE (18:00)
[2018-07-06 18:30] VITALS: BP 126/68
[2018-07-06] MEDS: ATORVASTATIN 80 MG TABLET PO SCH (21:25)
[2018-07-07 00:46] VITALS: BP 147/73
[2018-07-07] MEDS: CALCIUM CARBONATE 500 MG TAB.CHEW PO PRN ×3 (01:22→12:54)
[2018-07-07 05:05] LABS: INTERNATIONAL NORMALIZED RATIO 1.15 (0.93-1.1)
[2018-07-07 05:07] LABS: ANION GAP 5 mmol/L (5-15); CALCIUM 8.9 mg/dL (8.5-10.1); CHLORIDE 104 mmol/L (98-107); CREATININE 0.55 mg/dL (0.7-1.3)
[2018-07-07] MEDS: CARVEDILOL 25 MG TABLET PO SCH (06:08)
[2018-07-07] MEDS: HYDROcodone/APAP 5/325 TABLET PO PRN ×2 (06:08→12:54)
[2018-07-07 07:58] VITALS: BP 138/72
[2018-07-07] MEDS: SODIUM CHLORIDE NASAL SPRAY 45ML BOTTLE NAS SCH (09:00)
[2018-07-07] MEDS: AMLODIPINE 5 MG TABLET PO SCH (09:38)
[2018-07-07] MEDS: POTASSIUM CHLORIDE 10 MEQ TABLET.ER PO SCH (09:38)
[2018-07-07] MEDS: MULTIVITS,STRESS FORMULA 1 TABLET PO SCH (09:38)
[2018-07-07] MEDS: GABAPENTIN 300 MG CAPSULE PO SCH (09:39)
[2018-07-07] MEDS: FUROSEMIDE 40 MG TABLET PO SCH (09:39)
[2018-07-07] MEDS: CHOLECALCIFEROL 1,000 UNIT TABLET PO SCH (09:39)
[2018-07-07] MEDS: DOCUSATE 100 MG CAPSULE PO SCH (09:39)
[2018-07-07] MEDS: POLYETHYLENE GLYCOL 17 GM PACKET PO SCH (09:40)
[2018-07-07] MEDS: FLUTICASONE NASAL SPRAY 16GM NAS SCH (09:45)
[2018-07-07] MEDS: METHOCARBAMOL 500 MG TABLET PO PRN (15:07)
[2018-07-07 15:10] VITALS: BP 145/63
[2018-07-07] MEDS ORDERED: WARFARIN 10 MG TABLET PO-COUM ONE (18:00)
== END 2018-07-07 16:20 | disposition home health service (06) | DRG 252 ==
LOC: OUT 12:49 → EDSTATUS 15:00 → 4NOR 16:42 → OUT 16:42 → 4NOR 17:00 → OUT 07-04 00:56 → 4NOR 07-04 00:56 → UNDOADMIN 07-04 00:57 → 4NOR 07-04 00:57
PROVIDERS: ADMIT Surgery; ATTEND Surgery
PROC: B41D1ZZ Fluoroscopy of Aorta and Bilateral Lower Extremity Arteries using Low Osmolar Contrast (ICD-10-PCS; 2018-07-03)
PROC: 041L0JL Bypass Left Femoral Artery to Popliteal Artery with Synthetic Substitute, Open Approach (ICD-10-PCS; 2018-07-04)
PROC: 03HY32Z Insertion of Monitoring Device into Upper Artery, Percutaneous Approach (ICD-10-PCS; principal; 2018-07-04 13:30)
DX: T82.898A Other specified complication of vascular prosthetic devices, implants and grafts, initial encounter (principal); J96.01 Acute respiratory failure with hypoxia; L97.229 Non-pressure chronic ulcer of left calf with unspecified severity; I10 Essential (primary) hypertension; E78.5 Hyperlipidemia, unspecified; E11.51 Type 2 diabetes mellitus with diabetic peripheral angiopathy without gangrene; G47.33 Obstructive sleep apnea (adult) (pediatric); I25.10 Atherosclerotic heart disease of native coronary artery without angina pectoris; K59.00 Constipation, unspecified; Z96.659 Presence of unspecified artificial knee joint; R79.1 Abnormal coagulation profile; Z79.01 Long term (current) use of anticoagulants; Z88.8 Allergy status to other drugs, medicaments and biological substances; Z82.49 Family history of ischemic heart disease and other diseases of the circulatory system; Z95.1 Presence of aortocoronary bypass graft; Z87.891 Personal history of nicotine dependence; Y92.239 Unspecified place in hospital as the place of occurrence of the external cause; T42.75XA Adverse effect of unspecified antiepileptic and sedative-hypnotic drugs, initial encounter; I83.91 Asymptomatic varicose veins of right lower extremity; I70.222 Atherosclerosis of native arteries of extremities with rest pain, left leg
CPT/HCPCS: 36200; 36245; 36415; 75625; 75630; 75716; 76937; 80048; 80053; 83036; 83735; 85025; 85610; 85730; 93005; 99156; 99157; G0378; J1170; J1644; J2250; J2405; J2704; J2710; J2720; J3010; C1751; C1757; C1760; C1768; C1769; C1894; G0269; J0330; J2310; J2370